=== PATIENT | female | born 1950 | race Caucasian/White ===

== ENCOUNTER → 2016-12-14 | Day surgery (SDC) | payer OTHER, BC ==
--- NOTE | 2016-12-15 10:02 | PATH ---
Surgical Pathology Report Patient Name: SUSAN LOFTON [facility]. Rec. #: [id number] /Age/Gender: 1950 (Age: 66) / F Account: [id number] Location: [facility] Taken: 12/14/2016 Received: 12/14/2016 Reported: 12/15/2016 Physicians: Nena Cobb M.D. Specimen(s) Received A: LEFT BREAST UPPER SITE 1 WITH CALCS. B: LEFT BREAST UPPER SITE 1 WITHOUT CALCS. C: LEFT BREAST UOQ SITE 2 WITH CALCS. D: LEFT BREAST UOQ SITE 2 WITHOUT CALCS E: RIGHT BREAST CORE BIOPSY UOQ WITH CALCS. F: RIGHT BREAST CORE BIOPSY UOQ WITHOUT CALCS. Clinical History Nonpalpable lesion, microcalcification, suspicious Final Diagnosis A. LEFT BREAST, SITE #1 UPPER WITH CALCIFICATION, STEREOTACTIC NEEDLE CORE BIOPSY: SCLEROSED FIBROADENOMA WITH STROMAL CALCIFICATION. B. LEFT BREAST, SITE #1 UPPER WITHOUT CALCIFICATION, STEREOTACTIC NEEDLE CORE BIOPSY: SCLEROSED FIBROADENOMA, AND FIBROCYSTIC CHANGES INCLUDING STROMAL FIBROSIS AND DUCTAL DILATATION. C. LEFT BREAST, SITE #2 UPPER OUTER QUADRANT WITH CALCIFICATION, STEREOTACTIC NEEDLE CORE BIOPSY: SCLEROSED FIBROADENOMA WITH STROMAL CALCIFICATION, AND FIBROCYSTIC CHANGES INCLUDING STROMAL FIBROSIS AND DUCTAL DILATATION. D. LEFT BREAST, SITE #2 UPPER OUTER QUADRANT WITHOUT CALCIFICATION, STEREOTACTIC NEEDLE CORE BIOPSY: FIBROCYSTIC CHANGES INCLUDING STROMAL FIBROSIS AND DUCTAL DILATATION. E. RIGHT BREAST, UPPER OUTER QUADRANT WITH CALCIFICATION, STEREOTACTIC NEEDLE CORE BIOPSY: SCLEROSED FIBROADENOMA WITH STROMAL CALCIFICATION, AND FIBROCYSTIC CHANGES INCLUDING STROMAL FIBROSIS AND DUCTAL DILATATION. F. RIGHT BREAST, UPPER OUTER QUADRANT WITHOUT CALCIFICATION, STEREOTACTIC NEEDLE CORE BIOPSY: FIBROCYSTIC CHANGES INCLUDING STROMAL FIBROSIS AND DUCTAL DILATATION. Electronically Signed Percy Ngo M.D. Gross Description A. Received in formalin, labeled "left breast with calcifications site 1," are 5 orlando-yellow, cylindrical portions of fibroadipose tissue ranging from 0.6-2.7 cm. in length and averaging 0.2 cm. in diameter. The specimen is submitted in toto in one cassette. B. Received in formalin, labeled "left breast without calcifications site 1," are 3 orlando-yellow, cylindrical portions of fibroadipose tissue ranging from 2.2-3.0 cm. in length and averaging 0.3 cm. in diameter. The specimen is submitted in toto in one cassette. C. Received in formalin, labeled "left breast with calcifications site 2," is a 2.5 x 2.2 x 0.3 cm aggregate of multiple orlando-yellow, irregular to cylindrical portions of fibroadipose tissue. The formalin is filtered and the specimen is entirely submitted in one cassette. D. Received in formalin, labeled "left breast without calcifications site 2," is a 1.8 x 1.7 x 0.3 cm aggregate of multiple orlando-yellow, irregular to cylindrical portions of fibroadipose tissue. The formalin is filtered and the specimen is entirely submitted in one cassette. E. Received in formalin, labeled "right breast with calcifications," is a 2.3 x 2.2 x 0.3 cm aggregate of multiple orlando-yellow, irregular to cylindrical portions of fibroadipose tissue. The formalin is filtered and the specimen is entirely submitted in one cassette. F. Received in formalin, labeled "right breast without calcifications," is a 2.5 x 2.4 x 0.3 cm aggregate of multiple orlando-yellow, irregular to cylindrical portions of fibroadipose tissue. The formalin is filtered and the specimen is entirely submitted in one cassette. Time to formalin fixation: 4-5 minutes Total formalin fixation time: Approximately 8 hours. 12/14/201612/14/2016
--- NOTE | 2016-12-15 12:26 | OP ---
DATE OF OPERATION: 12/14/2016 PREOPERATIVE DIAGNOSIS: Abnormal bilateral mammography. POSTOPERATIVE DIAGNOSIS: Abnormal bilateral mammography. PROCEDURE: Left breast stereotactic needle biopsy with clip x2, right breast stereotactic needle biopsy. SURGEON: Nena Cobb MD ANESTHESIA: Local. ESTIMATED BLOOD LOSS: Minimal. COMPLICATIONS: None. INDICATIONS FOR PROCEDURE: The patient presented with a screening mammogram that noted 2 areas of clustering microcalcifications in the upper and upper outer left breast as well as in the upper outer right breast. My recommendation was needle biopsy of all 3 for definitive diagnosis. The procedure was discussed with her including the need for clips. PROCEDURE IN DETAIL: The patient was brought to [facility] laid prone on the lorad table. First the left breast was approached. With the cranial approach the calcifications in the upper breast were identified. A sterile prep was obtained. A target was chosen. There was a positive stroke margin. Using Betadine 1% lidocaine and a 9-gauge Suros device was used to take several cores from this area. Cores showed calcification within them. These were handled using calcification protocol. A bar-shaped clip was deployed in the area. Hemostasis showed direct pressure. Next, the calcifications in the upper outer left breast were targeted. A sterile prep was obtained. A target was chosen. There was a positive stroke margin. Using Betadine 1% lidocaine, a new 9-gauge needle was used to take several cores from this area. Special radiographs showed cores with calcification. These were handled with usual calcification protocol. A T-shaped clip was deployed in the area. Hemostasis showed direct pressure. Both incision were closed with Steri-Strips. The patient was then repositioned. The needle was then again changed and the right breast was placed into the stereotactic table. Again, using the cranial approach, the calcification in the upper outer right breast were identified. A sterile prep was obtained. A target was chosen. There was a positive stroke margin. Using Betadine 1% lidocaine, a 9-gauge Sorus device was used to take several cores from this area. Initially the cores showed no calcification therefore I removed the needle, retargeted the area and repositioned the needle back into the breast and again took several images to ensure positioning and then severe more cores were taken from the area. This time the cores did show calcification within them. These were handled using usual calcification protocol. A bar-shaped clip was deployed in the area. Hemostasis showed direct pressure. Incision were closed with Steri- Strips. She tolerated the procedure well and [facility]. Estephanie [id number] MTDD
== END | disposition home or self-care (01) ==
LOC: FMAMMOTONE 08:12
PROVIDERS: ATTEND Surgery
PROC: 0HBV3ZX Excision of Bilateral Breast, Percutaneous Approach, Diagnostic (ICD-10-PCS; principal; 2016-12-14)
DX: D24.2 Benign neoplasm of left breast (principal); R92.8 Other abnormal and inconclusive findings on diagnostic imaging of breast; D24.1 Benign neoplasm of right breast; N60.31 Fibrosclerosis of right breast; N60.32 Fibrosclerosis of left breast; N64.89 Other specified disorders of breast
CPT/HCPCS: 19081; 19082; 19284; 88305-TC

== ENCOUNTER 2017-01-10 09:04 | Day surgery (SDC) | payer OTHER, BC ==
[2017-01-09 12:46] VITALS: BMI 42.8
[2017-01-10] MEDS ORDERED: LIDOCAINE HCL/PF 2% SDV 5ML VIAL ONE (09:45)
[2017-01-10] MEDS ORDERED: PROPOFOL 20 ML ONE ×3 (09:45)
[2017-01-10 10:30] VITALS: TEMP 97.5
[2017-01-10 11:43] VITALS: BP 120/78; PULSE 64
--- NOTE | 2017-01-11 14:22 | PATH ---
Surgical Pathology Report Patient Name: SUSAN LOFTON [facility]. Rec. #: [id number] /Age/Gender: 1950 (Age: 66) / F Account: [id number] Location: [facility] Taken: 01/10/2017 Received: 01/10/2017 Reported: 01/11/2017 Physicians: James Can D.O. Specimen(s) Received A: BX ANGULARIS/BODY B: BX PYLORUS C: BX GE JUNCTION Clinical History Nausea, abdominal pain Final Diagnosis A. STOMACH, ANGULARIS/BODY, BIOPSY: GASTRIC OXYNTIC AND FOCALLY ANTRAL MUCOSA WITH MODERATE CHRONIC GASTRITIS. IMMUNOSTAIN FOR H. PYLORI IS NEGATIVE FOR ORGANISMS. B. PYLORUS, BIOPSY: GASTRIC ANTRAL MUCOSA WITH MODERATE CHRONIC GASTRITIS WITH FOCAL INTESTINAL METAPLASIA AND MILD REACTIVE GASTROPATHY. NEGATIVE FOR DYSPLASIA. IMMUNOSTAIN FOR H. PYLORI IS NEGATIVE FOR ORGANISMS. C. GE JUNCTION, BIOPSY: FOCALLY ULCERATED SQUAMOCOLUMNAR JUNCTIONAL MUCOSA WITH ACTIVE AND CHRONIC INFLAMMATION AND MARKED REFLUX TYPE CHANGES. NO INTESTINAL METAPLASIA (JOHNSON'S ESOPHAGUS) IDENTIFIED. Comment: Special stain for fungal organisms is pending; results will be reported in an addendum. Electronically Signed Calixto King M.D. Gross Description A. Received in formalin, labeled "biopsy angularis" are 3 orlando, irregular portions of soft tissue ranging from 0.2-0.3 cm in greatest dimension. The specimens are submitted in toto in one cassette. B. Received in formalin, labeled "biopsy pylorus" are 2 orlando, irregular portions of soft tissue measuring 0.2 and 0.5 cm in greatest dimension. The specimens are submitted in toto in one cassette. C. Received in formalin, labeled "biopsy GE junction" are 3 orlando, irregular portions of soft tissue ranging from 0.2-0.4 cm in greatest dimension. The specimens are submitted in toto in one cassette. 01/10/201701/10/2017
== END 2017-01-10 11:25 | disposition home or self-care (01) ==
LOC: JASU-ENDO 09:04
PROVIDERS: ATTEND Internal Medicine Gastroenterology
PROC: 0DB68ZX Excision of Stomach, Via Natural or Artificial Opening Endoscopic, Diagnostic (ICD-10-PCS; principal; 2017-01-10 10:00)
DX: K29.50 Unspecified chronic gastritis without bleeding (principal)
CPT/HCPCS: 88305-TC; 88342-TC

== ENCOUNTER 2017-01-24 07:52 | Day surgery (SDC) | payer OTHER, BC ==
[2017-01-24 08:41] VITALS: BMI 43.0
[2017-01-24] MEDS ORDERED: LIDOCAINE HCL/PF 2% SDV 5ML VIAL ONE (08:58)
[2017-01-24] MEDS ORDERED: SUCCINYLCHOLINE CHLORIDE 200 MG/10 ML VIAL ONE (08:58)
[2017-01-24] MEDS ORDERED: PROPOFOL 20 ML ONE ×3 (08:58)
[2017-01-24 09:57] VITALS: TEMP 97.5
[2017-01-24 10:40] VITALS: BP 113/51; PULSE 73
--- NOTE | 2017-01-25 14:05 | PATH ---
Surgical Pathology Report Patient Name: SUSAN LOFTON [facility]. Rec. #: [id number] /Age/Gender: 1950 (Age: 66) / F Account: [id number] Location: [facility] Taken: 01/24/2017 Received: 01/24/2017 Reported: 01/25/2017 Physicians: James Can D.O. Specimen(s) Received A: BX CECAL POLYP B: PROXIMAL TRANSVERSE COLON POLYP C: BX SIGMOID COLON POLYP D: RECTOSIGMOID COLON POLYP COLD SNARE Clinical History Screening colonoscopy Colon polyps, diverticulosis, hemorrhoids Final Diagnosis A. COLON, CECUM, POLYP, BIOPSY: POLYPOID FRAGMENT OF COLONIC MUCOSA WITH SURFACE HYPERPLASTIC CHANGE. B. COLON, PROXIMAL TRANSVERSE, POLYP, POLYPECTOMY: FRAGMENTS OF HYPERPLASTIC-TYPE POLYP WITH FEATURES OF SESSILE SERRATED ADENOMA. C. COLON, SIGMOID, POLYP, BIOPSY: HYPERPLASTIC POLYP. D. COLON, RECTOSIGMOID, POLYP, POLYPECTOMY: TUBULAR ADENOMA. Electronically Signed Calixto King M.D. Gross Description A. Received in formalin, labeled "biopsy cecal polyp" is a orlando, irregular portion of soft tissue measuring 0.3 cm in greatest dimension. The specimen is submitted in toto in one cassette. B. Received in formalin, labeled "proximal transverse colon polyp" are 3 orlando, irregular portions of soft tissue ranging from 0.2-0.8 cm in greatest dimension. The specimens are submitted in toto in one cassette. C. Received in formalin, labeled "biopsy sigmoid colon" is a orlando, irregular portion of soft tissue measuring 0.4 cm in greatest dimension. The specimen is submitted in toto in one cassette. D. Received in formalin, labeled "rectosigmoid polyp" is a orlando, irregular portion of soft tissue measuring 0.7 cm in greatest dimension. The specimen is submitted in toto in one cassette. 01/24/201701/24/2017
== END 2017-01-24 10:49 | disposition home or self-care (01) ==
LOC: JASU-ENDO 07:52
PROVIDERS: ATTEND Internal Medicine Gastroenterology
PROC: 0DBL8ZX Excision of Transverse Colon, Via Natural or Artificial Opening Endoscopic, Diagnostic (ICD-10-PCS; 2017-01-24)
PROC: 0DBH8ZX Excision of Cecum, Via Natural or Artificial Opening Endoscopic, Diagnostic (ICD-10-PCS; 2017-01-24)
PROC: 0DBN8ZX Excision of Sigmoid Colon, Via Natural or Artificial Opening Endoscopic, Diagnostic (ICD-10-PCS; 2017-01-24)
PROC: 0DBN8ZX Excision of Sigmoid Colon, Via Natural or Artificial Opening Endoscopic, Diagnostic (ICD-10-PCS; principal; 2017-01-24 09:00)
DX: Z12.11 Encounter for screening for malignant neoplasm of colon (principal); D12.7 Benign neoplasm of rectosigmoid junction; D12.5 Benign neoplasm of sigmoid colon; D12.3 Benign neoplasm of transverse colon; D12.0 Benign neoplasm of cecum; K57.30 Diverticulosis of large intestine without perforation or abscess without bleeding; K64.8 Other hemorrhoids
CPT/HCPCS: 88305-TC

== ENCOUNTER 2017-09-28 18:11 | Inpatient (IN) | payer OTHER, BC ==
--- NOTE | 2017-09-28 18:29 | PDOC ---
History of Present Illness - General History Source: Patient Exam Limitations: No Limitations - History of Present Illness Initial Comments: 09/28/17 19:50 Patient is a 67 year old female with a significant past medical history of HTN, Anxiety, left kidney cyst, Adrenal gland nodule, who presents to the ED with complaints of bloody urine that began 3 days ago. Patient reports experiencing bloody urine suddenly monday morning while at home, which prompted her to call her urologist. She reports urologist scheduled her for CT with contrast tomorrow afternoon. Patient states she was prescribed cefuroxime antibiotics by urologist. She reports not taking blood pressure medication due to experiencing nausea when taken with her antibiotics. Patient reports urinating this morning and noticed a large clot pass. She reports calling urologist office after passing clot and states she was advised to come to the ED for further evaluation. Patient reports experiencing intense pain with urination secondary to bloody urine, stating she has begun to retain her urine due to her pain. Denies chest pain, SOB. Denies nausea, vomiting. Denies numbness, tingles. Denies constipation, diarrhea. Denies any other symptoms. Allergies: Shellfish Social history: No smoking. No alcohol. No illicit drugs. Surgical history: None PMD: Dr. Damon Urologist: Dr. Jane <Benson Lehman - Last Filed: 09/28/17 19:50> <Bryce Perez - Last Filed: 09/29/17 01:21> - General Chief Complaint: Hematuria Stated Complaint: PAIN Time Seen by Provider: 09/28/17 18:28 Past History <Benson Lehman - Last Filed: 09/28/17 19:50> - Past Medical History Anemia: No Asthma: No Cancer: No Cardiac Disorders: No CVA: No COPD: No CHF: No Dementia: No Diabetes: No GI Disorders: Yes (H/O DIVERTICULOSIS, COLON POLYP) Disorders: No HTN: Yes Hypercholesterolemia: No Liver Disease: No Seizures: No Thyroid Disease: No - Surgical History Abdominal Surgery: No Appendectomy: No Cardiac Surgery: No Cholecystectomy: No Lung Surgery: No Neurologic Surgery: No Orthopedic Surgery: Yes (LEFT TOTAL KNEE REPLACEMENT) - Immunization History Immunization Up to Date: Yes - Suicide/Smoking/Psychosocial Hx Smoking History: Never smoked Have you smoked in the past 12 months: No Information on smoking cessation initiated: No Hx Alcohol Use: No Drug/Substance Use Hx: No Substance Use Type: None Hx Substance Use Treatment: No <Bryce Perez - Last Filed: 09/29/17 01:21> - Past Medical History Allergies/Adverse Reactions: Allergies Allergy/AdvReac Type Severity Reaction Status Date / Time shellfish derived AdvReac Intermediate Hives Verified 09/28/17 18:15 Home Medications: Ambulatory Orders Metoprolol Succinate [Toprol Xl] 50 mg PO HS 01/09/17 Olmesartan Medoxomil [Benicar -] 20 mg PO DAILY 01/09/17 Alprazolam [Xanax] 0.25 mg PO Q6H PRN 01/24/17 Cefuroxime Axetil [Cefuroxime] 500 mg PO BID 09/28/17 Furosemide [Lasix] 20 mg PO DAILY 09/28/17 Review of Systems - Review of Systems Able to Perform ROS?: Yes Comments:: 09/28/17 19:50 GENERAL/CONSTITUTIONAL: No fever or chills. No weakness. HEAD, EYES, EARS, NOSE AND THROAT: No change in vision. No ear pain or discharge. No sore throat. CARDIOVASCULAR: No chest pain or shortness of breath. RESPIRATORY: No cough, wheezing, or hemoptysis. GASTROINTESTINAL: No nausea, vomiting, diarrhea or constipation. GENITOURINARY: +Dysuria, +Hematuria No frequency, MUSCULOSKELETAL: No joint or muscle swelling or pain. No neck or back pain. SKIN: No rash NEUROLOGIC: No headache, vertigo, loss of consciousness, or change in strength/ sensation. ENDOCRINE: No increased thirst. No abnormal weight change. HEMATOLOGIC/LYMPHATIC: No anemia, easy bleeding, or history of blood clots. ALLERGIC/IMMUNOLOGIC: No hives or skin allergy. All Other Systems: Reviewed and Negative <Benson Lehman - Last Filed: 09/28/17 19:50> *Physical Exam - Vital Signs Last Vital Signs Temp Pulse Resp BP Pulse Ox 98.7 F 89 17 149/90 96 09/28/17 18:16 09/28/17 18:16 09/28/17 18:16 09/28/17 18:16 09/28/17 18:16 - Physical Exam Comments: 09/28/17 19:50 GENERAL: Awake, alert, and fully oriented, in no acute distress HEAD: No signs of trauma EYES: PERRLA, EOMI, sclera anicteric, conjunctiva clear ENT: Auricles normal inspection, hearing grossly normal, nares patent, oropharynx clear without exudates. Moist mucosa NECK: Normal ROM, supple, no lymphadenopathy, JVD, or masses LUNGS: Breath sounds equal, clear to auscultation bilaterally. No wheezes, and no crackles HEART: Regular rate and rhythm, normal S1 and S2, no murmurs, rubs or gallops ABDOMEN: +Bladder distended. Soft, nontender, normoactive bowel sounds. No guarding, no rebound. No masses EXTREMITIES: Normal range of motion, no edema. No clubbing or cyanosis. No cords, erythema, or tenderness NEUROLOGICAL: Cranial nerves II through XII grossly intact. Normal speech, normal gait SKIN: Warm, Dry, normal turgor, no rashes or lesions noted. <Benson Lehman - Last Filed: 09/28/17 19:50> - Vital Signs Last Vital Signs Temp Pulse Resp BP Pulse Ox 98.7 F 89 17 149/90 96 09/28/17 18:16 09/28/17 18:16 09/28/17 18:16 09/28/17 18:16 09/28/17 18:16 <Bryce Perez - Last Filed: 09/29/17 01:21> ED Treatment Course - Medications Given in the ED: ED Medications Discontinued Medications Generic Name Dose Route Start Last Admin Trade Name Freq PRN Reason Stop Dose Admin Alprazolam 0.25 mg 09/28/17 18:57 09/28/17 19:20 Xanax - PO 09/28/17 18:58 0.25 mg ONCE ONE Administration <Benson Lehman - Last Filed: 09/28/17 19:50> - LABORATORY CBC & Chemistry Diagram: 09/28/17 19:19 09/28/17 19:19 <Bryce Perez - Last Filed: 09/29/17 01:21> *DC/Admit/Observation/Transfer - Attestations Scribe Attestion: 09/28/17 19:51 Documentation prepared by Benson Lehman, acting as medical office specialist for Bryce Perez MD/. <Benson Lehman - Last Filed: 09/28/17 19:50> - Discharge Dispostion Admit: Yes - Attestations Physician Attestion: 09/28/17 18:29 I, Dr. Bryce Perez, attest that this document has been prepared under my direction and personally reviewed by me in its entirety. I further attest, that it accurately reflects all work, treatment, procedures and medical decision -making performed by me. <Bryce Perez - Last Filed: 09/29/17 01:21> Diagnosis at time of Disposition: Renal vein thrombosis, Occult malignancy Hematuria Qualifiers: Hematuria type: gross Qualified Code(s): R31.0 - Gross hematuria UTI (urinary tract infection) Qualifiers: Urinary tract infection type: site unspecified Hematuria presence: with hematuria Qualified Code(s): N39.0 - Urinary tract infection, site not specified ; R31.9 - Hematuria, unspecified; R31.9 - Hematuria, unspecified - Discharge Dispostion Condition at time of disposition: Improved - Referrals Referrals: Geoff Damon MD [Primary Care Provider] -
[2017-09-28] MEDS ORDERED: ALPRAZolam 0.25 MG TABLET PO ONE ×2 (18:57→20:31)
[2017-09-28] MEDS ORDERED: SODIUM CHLORIDE 1,000 ML IV STA (18:57)
[2017-09-28] MEDS ORDERED: ALPRAZolam 0.25 MG TABLET ONE ×2 (19:01→20:39)
[2017-09-28 20:05] LABS: BASO % 0.6 % (0-2.0); EOS # 0.1 # (0-4.5); EOS % 1.3 % (0-4.5); LYMPH # 1.2 (8-40); MCH 31.2 pg (25.7-33.7); MCHC 33.5 g/dl (32.0-36.0); MEAN CELL VOLUME 93.1 fl (80-96); MEAN PLT VOLUME 10.9 fl (7.5-11.1); MONO # 0.5 # (3.8-10.2); NEUT % 73.1 % (42.8-82.8); PLATELET COUNT 178 K/MM3 (134-434); RDW 12.7 % (11.6-15.6); WHITE BLOOD COUNT 6.9 K/mm3 (4.0-10.0)
[2017-09-28] MEDS ORDERED: WATER FOR INJ,STERILE 30 ML ONE (20:08)
[2017-09-28 20:45] LABS: ALBUMIN 3.6 g/dl (3.4-5.0); ANION GAP 9 (8-16); BILIRUBIN,TOTAL 0.7 mg/dL (0.2-1.0); CALCIUM 8.8 mg/dL (8.5-10.1); CO2 24 mmol/L (21-32); CREATININE 1.6 mg/dL (0.55-1.02); GLUCOSE,RANDOM 111 mg/dL (74-106); SGOT/AST 20 U/L (15-37); SGPT/ALT 33 U/L (12-78); TOT PROT 6.9 g/dl (6.4-8.2)
[2017-09-28 20:46] LABS: ALK PHOS 80 U/L (45-117)
[2017-09-28 20:50] LABS: INR 1.03 (0.82-1.09); PROTHROMBIN TIME (PATIENT) 11.6 SEC (9.98-11.88)
[2017-09-28 20:52] LABS: ACTIVATED PTT 27.9 SECONDS (26.9-34.4)
[2017-09-28 23:07] LABS: PH,URINE 6.5 (5.0-8.0); URINE APPEARANCE CLEAR; URINE BILIRUBIN 1+ (NEGATIVE); URINE BLOOD 3+ (NEGATIVE); URINE COLOR DK. RED; URINE GLUCOSE (UA) TRACE (NEGATIVE); URINE KETONE TRACE (NEGATIVE)
[2017-09-28 23:15] LABS: URINE LEUK ESTERASE 1+ (NEGATIVE); URINE NITRITE POSITIVE (NEGATIVE); URINE PROTEIN 3+ (NEGATIVE)
[2017-09-28 23:25] LABS: URINE RBC >100 /hpf (0-3); URINE WBC >100 /hpf (3-5)
[2017-09-29] MEDS ORDERED: cefTRIAXone 1 GM/50 ML BAG (PRE-DOCKED) IVPB ONE (00:09)
[2017-09-29] MEDS ORDERED: CEFTRIAXONE 1 GM/50 ML BAG ONE (00:33)
--- NOTE | 2017-09-29 01:13 | HP ---
CHIEF COMPLAINT: "blood in urine, left flank pain, urinary retention" PCP: Dr. Allen Urologist: Dr. Jane HISTORY OF PRESENT ILLNESS: 67 yo F with hx of HTN, left kidney cyst and left adrenal nodule presented to the ER due to hematuria , urinary retention and left flank pain. Left flank pain (5/10) started 2 weeks ago and has radiated toward the groin, patient states that pain has improved since onset of hematuria. Patient noticed brown urine on Monday and saw her urologist Dr. Melchor where she was prescribed cefuroxime. She was scheduled for CT of pelvis tomorrow. Hematuria progresses to red and she passed clots today, her urologist recommended that she come to the ED. Yesterday she noted urinary retention for 9 hours due to severe lower abdominal/ bladder pain when she passed urine. Patient reports chills last week. Patient denies fever, headache, blurry vision, lightheadedness. Denies chest pain, SOB, palpitations. Denies N/V/D/C. She reports swelling of her feet for the past 6 months. She stopped using lasix 2 weeks ago due to nausea from antibiotics. ER course was notable for: (1) Bladder irrigation (2) CT abd/ pelvis (3) Heparin drip 1000mL/hr Recent Travel: denies PAST MEDICAL HISTORY: HTN, anxiety, left kidney cyst, left adrenal nodules, bladder infection, arthritis PAST SURGICAL HISTORY: left total knee replacement, total hysterectomy, cataract surgery, breast biopsy x3, colonoscopy, endoscopy, HIDA scan- cholelithiasis. Social History: Smoking: denies Alcohol: denies Drugs: denies Family History: mother- kidney cancer, HTN, CAD - age 80 father- aplastic anemia - 49 Allergies shellfish derived Adverse Reaction (Intermediate, Verified 09/28/17 18:15) Hives HOME MEDICATIONS: Home Medications Medication Instructions Recorded Metoprolol Succinate [Toprol Xl] 50 mg PO HS 01/09/17 Olmesartan Medoxomil [Benicar -] 20 mg PO DAILY 01/09/17 Alprazolam [Xanax] 0.25 mg PO Q6H PRN 01/24/17 Cefuroxime Axetil [Cefuroxime] 500 mg PO BID 09/28/17 Furosemide [Lasix] 20 mg PO DAILY 12/21/17 REVIEW OF SYSTEMS CONSTITUTIONAL: Absent: fever, chills, diaphoresis, generalized weakness, malaise, loss of appetite, weight change HEENT: Absent: rhinorrhea, nasal congestion, throat pain, throat swelling, difficulty swallowing, mouth swelling, ear pain, eye pain, visual changes CARDIOVASCULAR: Absent: chest pain, syncope, palpitations, irregular heart rate, lightheadedness , peripheral edema RESPIRATORY: Absent: cough, shortness of breath, dyspnea with exertion, orthopnea, wheezing, stridor, hemoptysis GASTROINTESTINAL: Absent: abdominal pain, abdominal distension, nausea, vomiting, diarrhea, constipation, melena, hematochezia GENITOURINARY: Absent: dysuria, frequency, urgency, hesitancy, hematuria, flank pain, genital pain MUSCULOSKELETAL: Absent: myalgia, arthralgia, joint swelling, back pain, neck pain SKIN: Absent: rash, itching, pallor HEMATOLOGIC/IMMUNOLOGIC: Absent: easy bleeding, easy bruising, lymphadenopathy, frequent infections ENDOCRINE: Absent: unexplained weight gain, unexplained weight loss, heat intolerance, cold intolerance NEUROLOGIC: Absent: headache, focal weakness or paresthesias, dizziness, unsteady gait, seizure, mental status changes, bladder or bowel incontinence PSYCHIATRIC: Absent: anxiety, depression, suicidal or homicidal ideation, hallucinations. PHYSICAL EXAMINATION Vital Signs - 24 hr 09/28/17 18:16 Temperature 98.7 F Pulse Rate 89 Respiratory 17 Rate Blood Pressure 149/90 O2 Sat by Pulse 96 Oximetry (%) GENERAL: Awake, alert, and fully oriented, in no acute distress. HEAD: Normal with no signs of trauma. EYES: Pupils equal, round and reactive to light, extraocular movements intact, sclera anicteric, conjunctiva clear. No lid lag. EARS, NOSE, THROAT: Ears normal, nares patent, oropharynx clear without exudates. Moist mucous membranes. NECK: Normal range of motion, supple without lymphadenopathy, JVD, or masses. LUNGS: Breath sounds equal, clear to auscultation bilaterally. No wheezes, and no crackles. No accessory muscle use. HEART: Regular rate and rhythm, normal S1 and S2 without murmur, rub or gallop. ABDOMEN: Soft, nontender, not distended, normoactive bowel sounds, no guarding, no rebound, no masses. No hepatomegaly or splenomegaly. MUSCULOSKELETAL: Normal range of motion at all joints. No bony deformities or tenderness. No CVA tenderness. UPPER EXTREMITIES: 2+ pulses, warm, well-perfused. No cyanosis. No clubbing. No peripheral edema. LOWER EXTREMITIES: 2+ pulses, warm, well-perfused. No calf tenderness. No peripheral edema. NEUROLOGICAL: Cranial nerves II-XII intact. Normal speech. Normal gait. PSYCHIATRIC: Cooperative. Good eye contact. Appropriate mood and affect. SKIN: Warm, dry, normal turgor, no rashes or lesions noted, normal capillary refill. Laboratory Results - last 24 hr 09/28/17 09/28/17 09/28/17 19:19 19:19 19:19 WBC 6.9 D RBC 3.67 Hgb 11.5 Hct 34.2 MCV 93.1 MCH 31.2 MCHC 33.5 RDW 12.7 Plt Count 178 MPV 10.9 Absolute Neuts (auto) 5.0 L Absolute Lymphs (auto) 1.2 L Absolute Monos (auto) 0.5 L Absolute Eos (auto) 0.1 Absolute Basos (auto) 0.0 L Neutrophils % 73.1 D Lymphocytes % 17.6 D Monocytes % 7.4 Eosinophils % 1.3 Basophils % 0.6 PT with INR 11.60 INR 1.03 PTT (Actin FS) 27.9 Sodium 139 Potassium 4.1 Chloride 106 Carbon Dioxide 24 Anion Gap 9 BUN 29 H Creatinine 1.6 H Creat Clearance w eGFR 31.96 Random Glucose 111 H Calcium 8.8 Total Bilirubin 0.7 D AST 20 ALT 33 Alkaline Phosphatase 80 Total Protein 6.9 Albumin 3.6 Urine Color Urine Appearance Urine pH Ur Specific [place] Urine Protein Urine Glucose (UA) Urine Ketones Urine Blood Urine Nitrite Urine Bilirubin Urine Urobilinogen Urine WBC (Auto) Urine RBC (Auto) Ur Epithelial Cells Blood Type Antibody Screen 09/28/17 09/28/17 19:19 20:48 WBC RBC Hgb Hct MCV MCH MCHC RDW Plt Count MPV Absolute Neuts (auto) Absolute Lymphs (auto) Absolute Monos (auto) Absolute Eos (auto) Absolute Basos (auto) Neutrophils % Lymphocytes % Monocytes % Eosinophils % Basophils % PT with INR INR PTT (Actin FS) Sodium Potassium Chloride Carbon Dioxide Anion Gap BUN Creatinine Creat Clearance w eGFR Random Glucose Calcium Total Bilirubin AST ALT Alkaline Phosphatase Total Protein Albumin Urine Color Dk. red Urine Appearance Clear Urine pH 6.5 D Ur Specific [place] 1.020 Urine Protein 3+ H Urine Glucose (UA) Trace H Urine Ketones Trace H Urine Blood 3+ H Urine Nitrite Positive Urine Bilirubin 1+ H Urine Urobilinogen 1.0 Urine WBC (Auto) >100 Urine RBC (Auto) >100 Ur Epithelial Cells Mod Blood Type A NEGATIVE Antibody Screen Negative CBC, BMP 09/28/17 19:19 09/28/17 19:19 CT abd/pelvis 09/28/17 IMPRESSION: 1. Left renal vein thrombosis as described above, may be secondary to bland or tumor thrombus. Please correlate clinically and confirm with renal vein duplex. Secondary marked enlargement of the left kidney with heterogeneous hyperattenuation of the parenchyma, suggesting left renal hemorrhage. Underlying renal neoplasm cannot be excluded. Evaluation with multiphase contrast- enhanced MRI or CT of the kidneys is recommended. 2. No hydroureteronephrosis. There is no renal, ureteral or urinary bladder calculi Large left renal cyst. 3. Approximately 3.4 x 2.6 cm heterogeneous left adrenal mass, similar in size to 06/28/2013 CT. This mass is indeterminate. Malignancy cannot be entirely excluded with imaging in adrenal masses > 3 cm. Nonemergent surgical evaluation recommended. 4. A 1.9 x 1.5 cm right adrenal gland adenoma. 5. Hepatic steatosis and borderline hepatomegaly. 6. A 1.2 x 0.9 cm peripherally calcified splenic artery aneurysm, unchanged in size from 06/2013. 7. Small pericardial effusion. ASSESSMENT/PLAN: 67 yo F with hx of HTN, left kidney cyst and left adrenal nodule presented to the ER due to 3 days hx of hematuria , urinary retention and left flank pain. Was admitted for further evaluation. #hematuria likely secondary to renal thrombosis vs malignancy * bladder irrigation in the ED * heparin drip * admit to med surge * Urology consult Dr. Jane * consider U/S and MRI of kidneys - patient unable to tolerate contrast * repeat CBC, BMP, urine culture * mancilla cathether #UTI 2/2 retention * ceftriaxone 1g IVPB * # R[place] on CKD stage 3b * GFR 33 * BUN/Cr 29/1.6 , base line cr 1.5 * Nephrology consult * Avoid nephrotoxigenic * # HTN (stable) * continue home medication Metoprolol Succinate [Toprol Xl] 50 mg PO HS * Olmesartan Medoxomil [Benicar -] 20 mg PO DAILY #morbid obesity (BMI 35) * consulted about losing weight and modified diet # FEN * F:on no fluids * E: monitor * N: low sodium diet #proph * DVT: SCDs B/L LE. Heparin drip 1000ml/hr * GI: not needed dispo: admit to med-surg - Visit type - Emergency Visit Emergency Visit: Yes ED Registration Date: 09/29/17 Care time: The patient presented to the Emergency Department on the above date and was hospitalized for further evaluation of their emergent condition. - New Patient This patient is new to me today: No - Critical Care Critical Care patient: No
[2017-09-29] MEDS ORDERED: HEPARIN INFUSION - 25,000 UNITS/500 ML INFUS.BAG IVPB ONE (01:50)
[2017-09-29] MEDS: HEPARIN - 25,000 UNIT in SODIUM CHLORIDE 495 ML IV SCH (02:00)
[2017-09-29] MEDS ORDERED: morphine SULFATE 4 MG/ML VIAL IVPUSH PRN (02:24)
[2017-09-29 03:14] VITALS: BMI 42.5
--- NOTE | 2017-09-29 05:30 | PN ---
Teaching Attending Note Name of Resident: Miguel Giles ATTENDING PHYSICIAN STATEMENT I saw and evaluated the patient. I reviewed the resident's note and discussed the case with the resident. I agree with the resident's findings and plan as documented. SUBJECTIVE: 67 y/o F with left flank pain and tenderness with hematuria for 3 days ago. Patient follows with Dr Mcghee and was ssen with plans OBJECTIVE: Gen: A&Ox3, afebrile HEENT: PEERLA, EOMI, MMM CVS: RRR, S1, S2 LUNGS: CTA ABD: Soft, left flank tenderness, BS+ Ext: no edema, nl ROM : CBI with red urine CBCD WBC 6.9 K/mm3 (4.0-10.0) D 09/28/17 19:19 RBC 3.67 M/mm3 (3.60-5.2) 09/28/17 19:19 Hgb 11.5 GM/dL (10.7-15.3) 09/28/17 19:19 Hct 34.2 % (32.4-45.2) 09/28/17 19:19 MCV 93.1 fl (80-96) 09/28/17 19:19 MCHC 33.5 g/dl (32.0-36.0) 09/28/17 19:19 RDW 12.7 % (11.6-15.6) 09/28/17 19:19 Plt Count 178 K/MM3 (134-434) 09/28/17 19:19 MPV 10.9 fl (7.5-11.1) 09/28/17 19:19 CMP Sodium 139 mmol/L (136-145) 09/28/17 19:19 Potassium 4.1 mmol/L (3.5-5.1) 09/28/17 19:19 Chloride 106 mmol/L (98-107) 09/28/17 19:19 Carbon Dioxide 24 mmol/L (21-32) 09/28/17 19:19 Anion Gap 9 (8-16) 09/28/17 19:19 BUN 29 mg/dL (7-18) H 09/28/17 19:19 Creatinine 1.6 mg/dL (0.55-1.02) H 09/28/17 19:19 Creat Clearance w eGFR 31.96 (>60) 09/28/17 19:19 Random Glucose 111 mg/dL (74-106) H 09/28/17 19:19 Calcium 8.8 mg/dL (8.5-10.1) 09/28/17 19:19 Total Bilirubin 0.7 mg/dL (0.2-1.0) D 09/28/17 19:19 AST 20 U/L (15-37) 09/28/17 19:19 ALT 33 U/L (12-78) 09/28/17 19:19 Alkaline Phosphatase 80 U/L (45-117) 09/28/17 19:19 Total Protein 6.9 g/dl (6.4-8.2) 09/28/17 19:19 Albumin 3.6 g/dl (3.4-5.0) 09/28/17 19:19 ASSESSMENT AND PLAN: Left Renal vein thrombosis with hematuria- anticoagulation heparin drip CBI Continue Ceftriaxone Urology and nephrology consult Monitor CBC and BMP CKD stage 3- avoid nephrotoxic drugs HTn- continue home medication. Asymptomatic Pericarditis-no intervention at this time Consider ECHO.
[2017-09-29] MEDS ORDERED: HEPARIN NA (PORCINE) 5,000 UNITS/ML 1ML VIAL SQ SCH (06:00)
--- NOTE | 2017-09-29 08:05 | MSN ---
Progress Note (short form) - Note Progress Note: SUBJECTIVE CC: blood in urine, L flank pain, urinary retention, outpatient UTI HPI: 67 y/o obese F with PMHx HTN, L kidney cyst, L adrenal mass (seen on [address]) with family hx of kidney ca and aplastic anemia. She presented with L flank pain of 2 weeks duration and states she noted brown urine on Tuesday 09/25 and was treated by Dr. Melchor for UTI with cefuroxime PO and took four oral doses (four day course) prior to admission to [facility]. She began passing clots in her urine, and hematuria changed from brown to bright red yesterday; Dr. Melchor told her to go to the hospital. Patient seen and examined today. Nurse reported having to change Edwards bag since patient is still passing clots this AM and urine was dilute bright red blood. Patient reports her L flank pain and nausea is improved from admission, and unchanged edema in b/l LE. Denies recent weight loss, appetite changes, chills, palpitations, vomiting, sweating. She states she has no cardiac conditions, never been seen by vascular, and denies being dx w/ CKD. She states she feels pressure from the Edwards but no pain. Pt states she has not taken Lasix for 2 weeks since she was on abx for UTI and "had to keep going to the bathroom; didn't want it to interfere with other meds". She reports having had a contrast CT of abd/pelvis done in 2014 and underwent thorough GI workup by Dr. Whiting for nausea "since October". OBJECTIVE Last Vital Signs Temp Pulse Resp BP Pulse Ox 97.7 F 73 20 123/51 96 09/29/17 09:34 09/29/17 09:34 09/29/17 09:34 09/29/17 09:34 09/29/17 09:00 General: Patient lying comfortably in bed, pleasant demeanor, smiling, in no acute distress. Eyes: PERRLA. Heart: Regular rate, regular rhythm. S1/S2. 3/6 systolic ejection murmur noted at R 2nd ICS. No other murmurs, gallops or rubs appreciated. Lungs: CTA b/l. No wheezing, no rhonchi. Abdomen: Normoactive bowel sounds x 4 quadrants. Nontender to light/deep palpation in RLQ, RUQ, epigastrium. Tender to light palpation in LUQ, LLQ. Tympanic to percussion x 4 quadrants. Mild CVA tenderness on L side. Extremities: 2+ pitting edema in b/l LE, worse on dorsum of b/l feet. Slight erythema noted on b/l LE near mid-calf; chronic. CBC, BMP 09/29/17 09:25 09/29/17 05:05 Abnormal Lab Results 09/28/17 09/28/17 09/28/17 19:19 19:19 20:48 RBC Hgb Hct Absolute Neuts (auto) 5.0 L Absolute Lymphs (auto) 1.2 L Absolute Monos (auto) 0.5 L Absolute Basos (auto) 0.0 L Chloride BUN 29 H Creatinine 1.6 H Random Glucose 111 H Total Protein Albumin Urine Protein 3+ H Urine Glucose (UA) Trace H Urine Ketones Trace H Urine Blood 3+ H Urine Bilirubin 1+ H Ur Leukocyte Esterase 3+ H 09/29/17 09/29/17 05:05 09:25 RBC 3.42 L Hgb 10.5 L Hct 32.2 L Absolute Neuts (auto) 2.7 L Absolute Lymphs (auto) 1.4 L Absolute Monos (auto) 0.5 L Absolute Basos (auto) Chloride 110 H BUN 22 H D Creatinine 1.3 H Random Glucose Total Protein 5.8 L Albumin 3.0 L Urine Protein Urine Glucose (UA) Urine Ketones Urine Blood Urine Bilirubin Ur Leukocyte Esterase Urine Test Results Urine Color Dk. red 09/28/17 20:48 Urine Appearance Clear 09/28/17 20:48 Urine pH 6.5 (5.0-8.0) D 09/28/17 20:48 Ur Specific [place] 1.020 (1.001-1.035) 09/28/17 20:48 Urine Protein 3+ (NEGATIVE) H 09/28/17 20:48 Urine Glucose (UA) Trace (NEGATIVE) H 09/28/17 20:48 Urine Ketones Trace (NEGATIVE) H 09/28/17 20:48 Urine Blood 3+ (NEGATIVE) H 09/28/17 20:48 Urine Nitrite Positive (NEGATIVE) 09/28/17 20:48 Urine Bilirubin 1+ (NEGATIVE) H 09/28/17 20:48 Ur Leukocyte Esterase 3+ (NEGATIVE) H 09/28/17 20:48 Ur Epithelial Cells Mod /HPF (FEW) 09/28/17 20:48 CT abdomen/pelvis: IMPRESSION: 1. Left renal vein thrombosis as described above , may be secondary to bland or tumor thrombus. Please correlate clinically and confirm with renal vein duplex. Secondary marked enlargement of the left kidney with heterogeneous hyperattenuation of the parenchyma, suggesting left renal hemorrhage. Underlying renal neoplasm cannot be excluded. Evaluation with multiphase contrast- enhanced MRI or CT of the kidneys is recommended. 2. No hydroureteronephrosis. There is no renal, ureteral or urinary bladder calculi Large left renal cyst. 3. Approximately 3.4 x 2.6 cm heterogeneous left adrenal mass, similar in size to 06/28/2013 CT. This mass is indeterminate. Malignancy cannot be entirely excluded with imaging in adrenal masses > 3 cm. Nonemergent surgical evaluation recommended. 4. A 1.9 x 1.5 cm right adrenal gland adenoma. 5. Hepatic steatosis and borderline hepatomegaly. 6. A 1.2 x 0.9 cm peripherally calcified splenic artery aneurysm, unchanged in size from 06/2013. 7. Small pericardial effusion. Intake & Output 09/26/17 09/27/17 09/28/17 09/29/17 23:59 23:59 23:59 23:59 Intake Total 08389 Output Total 2609 96930 Balance -2600 -4292 Weight 200 lb 240 lb Active Medications Generic Name Dose Route Start Last Admin Trade Name Freq PRN Reason Stop Dose Admin Heparin Sodium (Porcine) 25, 500 mls @ 20 mls/hr 09/29/17 01:30 09/29/17 02: 00 000 unit/ Sodium Chloride IV 1,000 unit/hr TITR ELADIO 20 mls/hr Protocol Administration 1,000 UNIT/HR CEFTRIAXONE 1 G/50 ML PREMIX 50 mls @ 100 mls/hr 09/30/17 10:00 Ceftriaxone 1 Gm-D5w Bag IVPB DAILY ELADIO Morphine Sulfate 1 mg 09/29/17 02:24 Morphine Sulfate IVPUSH Q8H PRN PAIN Home Medications Medication Instructions Recorded Metoprolol Succinate [Toprol Xl] 50 mg PO HS 01/09/17 Olmesartan Medoxomil [Benicar -] 20 mg PO DAILY 01/09/17 Alprazolam [Xanax] 0.25 mg PO Q6H PRN 01/24/17 Cefuroxime Axetil [Cefuroxime] 500 mg PO BID 09/28/17 Furosemide [Lasix] 20 mg PO DAILY 09/28/17 ASSESSMENT 67 y/o F with PMHx HTN, L kidney cyst, L adrenal mass (seen on 06/28/2013 CT) with family hx of kidney ca and aplastic anemia. Found to have L renal vein thrombosis with secondary marked enlargement of L kidney with L adrenal mass ( unchanged from 2012) and R adrenal gland adenoma. PLAN 1. Hematuria - likely 2/2 L renal hemorrhage secondary to L renal v. thrombosis; could be multifactorial with underlying renal malignancy given family hx of kidney ca and nausea since October 2016. - On Heparin gtt; urology consult Dr. Jane on board - Dr. Mendez consulted Dr. Cheng to address L renal v. thrombosis - Stool occult blood; CBC with diff ordered q8h - pt will require CAT scan of abd with contrast after urology/vasc consult - UA 3+ protein likely 2/2 glomerular damage from marked enlargement of L kidney secondary to L renal v. thrombosis 2. HTN - hold home meds; continue to monitor HTN since stable at this time - pt at risk of hypotension 2/2 renal hemorrhage 3. elevated BUN/elevated Cr - Pt baseline BUN from 3878-8459 ~30; baseline Cr 0.8 - 1.1 - currently CKD G3ba1; consulted Dr. Campa for nephro 4. FEN - Fluids: none at this time - Electrolytes: wnl - Nutrition: low sodium diet 5. PPX - DVT - Hep gtt - GI: not needed 6. Dispo - admit Med Surg BRUCE Cota-3 -
[2017-09-29 08:30] LABS: ALK PHOS 71 U/L (45-117); ANION GAP 8 (8-16); BILIRUBIN,TOTAL 0.7 mg/dL (0.2-1.0); CALCIUM 8.7 mg/dL (8.5-10.1); CO2 25 mmol/L (21-32); CREATININE 1.3 mg/dL (0.55-1.02); GLUCOSE,RANDOM 87 mg/dL (74-106); SGOT/AST 22 U/L (15-37); SGPT/ALT 29 U/L (12-78); TOT PROT 5.8 g/dl (6.4-8.2)
[2017-09-29 09:32] LABS: BASO # 0.1 # (0.1-1); BASO % 1.1 % (0-2.0); EOS # 0.2 # (0-4.5); LYMPH # 1.4 (8-40); MCH 30.6 pg (25.7-33.7); MCHC 32.4 g/dl (32.0-36.0); MEAN CELL VOLUME 94.2 fl (80-96); MEAN PLT VOLUME 10.7 fl (7.5-11.1); MONO # 0.5 # (3.8-10.2); NEUT # 2.7 # (42.8-82.8); NEUT % 55.9 % (42.8-82.8); PLATELET COUNT 157 K/MM3 (134-434); RDW 12.9 % (11.6-15.6); WHITE BLOOD COUNT 4.8 K/mm3 (4.0-10.0)
[2017-09-29 11:39] LABS: URINE LEUK ESTERASE 3+ (NEGATIVE)
--- NOTE | 2017-09-29 13:46 | EKG ---
Test Reason : Blood Pressure : / mmHG Vent. Rate : 070 BPM Atrial Rate : 070 BPM P-R Int : 190 ms QRS Dur : 098 ms QT Int : 384 ms P-R-T Axes : 052 -07 004 degrees QTc Int : 414 ms NORMAL SINUS RHYTHM MINIMAL VOLTAGE CRITERIA FOR LVH, MAY BE NORMAL VARIANT CANNOT RULE OUT ANTERIOR INFARCT , AGE UNDETERMINED NONSPECIFIC T WAVE ABNORMALITY ABNORMAL ECG Confirmed by LIZZIE BERNARDO MD ([id number]) on 09/29/2017 1:46:12 PM Referred By: Confirmed By:LIZZIE BERNARDO MD
[2017-09-29] MEDS: SODIUM CHLORIDE 1,000 ML IV SCH (14:27)
--- NOTE | 2017-09-29 14:39 | CONSULT ---
Consultation: REQUESTING PROVIDER: CONSULT REQUEST: We have been asked to medically evaluate this patient for ( specify). HISTORY OF PRESENT ILLNESS: This is a 67 yo F with PMH of of L renal cyst, L adrenal nodule, frequent UTIs and HTN, who presented to ED per Urologist request due to hematuria with clots, urinary retention and L flank pain. Flank pain (5/10) started 2 weeks ago and hematuria started Mon. She states that hematuria has improved the pain. On mon she sand saw Dr. Melchor and was prescribed cefuroxime. In ED she was found to have ROOSEVELT, hematuria, proteinuria, as well as L renal vein occlusion and hemorrhage on CT. Since admission her flank pain and retention resolved. Edwards was inserted and she was started on IV abx and hep gtt. Patient has been following with Dr Melchor regularly. Her prior renal w/u involved a CT in 2012 that showed a L renal cyst 5.5x3.5 and a L adrenal nodule 2.5 cm. She states she had an MRI in 2014 that was not consistent with malignancy, she never had a biopsy. He mother of renal CA at 78 yo. Patient denies fever, headache, blurry vision, lightheadedness, cp, SOB, palpitations, V/D/C. She reports b/l ankle edema x 6 months due to decreased mobility in setting of worsening R knee pain/plan for knee replacement. She stopped using lasix 2 weeks ago due to nausea thgat she attributes to abx REVIEW OF SYSTEMS: CONSTITUTIONAL: Absent: fever, chills, loss of appetite, weight change HEENT: Absent: rhinorrhea, nasal congestion, throat pain, throat swelling, difficulty swallowing CARDIOVASCULAR: Absent: chest pain, syncope, palpitations, irregular heart rate, lightheadedness , peripheral edema RESPIRATORY: Absent: cough, shortness of breath, dyspnea with exertion, orthopnea, hemoptysis GASTROINTESTINAL: Absent: abdominal pain, abdominal distension, nausea, vomiting, diarrhea, constipation, melena, hematochezia GENITOURINARY: Absent: dysuria, frequency, urgency MUSCULOSKELETAL: Absent: myalgia, arthralgia SKIN: Absent: rash, itching, pallor HEMATOLOGIC/IMMUNOLOGIC: Absent: easy bleeding, easy bruising ENDOCRINE: Absent: unexplained weight gain, unexplained weight loss, heat intolerance, cold intolerance NEUROLOGIC: Absent: headache, focal weakness or paresthesias PSYCHIATRIC: Absent: anxiety, depression PHYSICAL EXAMINATION Vital Signs - 24 hr 09/28/17 09/29/17 09/29/17 18:16 02:10 03:00 Temperature 98.7 F 98.0 F 98.1 F Pulse Rate 89 77 Pulse Rate [ 74 Apical] Respiratory 17 18 20 Rate Blood Pressure 149/90 158/77 Blood Pressure 138/64 [Right Arm] O2 Sat by Pulse 96 96 Oximetry (%) 09/29/17 09/29/17 09/29/17 03:18 06:00 09:00 Temperature 98.1 F Pulse Rate 77 Pulse Rate [ Apical] Respiratory 20 20 Rate Blood Pressure 158/87 Blood Pressure [Right Arm] O2 Sat by Pulse 96 96 Oximetry (%) 09/29/17 09:34 Temperature 97.7 F Pulse Rate 73 Pulse Rate [ Apical] Respiratory 20 Rate Blood Pressure 123/51 Blood Pressure [Right Arm] O2 Sat by Pulse Oximetry (%) GENERAL: Awake, alert, and fully oriented, in no acute distress. HEAD: Normal with no signs of trauma. EYES: Pupils equal, round and reactive to light, extraocular movements intact, sclera anicteric, conjunctiva clear. EARS, NOSE, THROAT: Moist mucous membranes. NECK: supple without JVD LUNGS: Breath sounds equal, clear to auscultation bilaterally. HEART: Regular rate and rhythm, normal S1 and S2 ABDOMEN: Soft, nontender, not distended, normoactive bowel sounds, no guarding, no rebound, no masses. No hepatomegaly or splenomegaly. MUSCULOSKELETAL: No CVA tenderness. UPPER EXTREMITIES: 2+ pulses, warm, well-perfused. No peripheral edema. LOWER EXTREMITIES: 1+ pulses, warm, well-perfused. No calf tenderness. No peripheral edema. NEUROLOGICAL: Cranial nerves II-XII grossly intact. Normal speech. Normal gait. PSYCHIATRIC: Cooperative. Good eye contact. Appropriate mood and affect. SKIN: Warm, dry Laboratory Results - last 24 hr 09/28/17 09/28/17 09/28/17 19:19 19:19 19:19 WBC 6.9 D RBC 3.67 Hgb 11.5 Hct 34.2 MCV 93.1 MCH 31.2 MCHC 33.5 RDW 12.7 Plt Count 178 MPV 10.9 Absolute Neuts (auto) 5.0 L Absolute Lymphs (auto) 1.2 L Absolute Monos (auto) 0.5 L Absolute Eos (auto) 0.1 Absolute Basos (auto) 0.0 L Neutrophils % 73.1 D Lymphocytes % 17.6 D Monocytes % 7.4 Eosinophils % 1.3 Basophils % 0.6 PT with INR 11.60 INR 1.03 PTT (Actin FS) 27.9 Sodium 139 Potassium 4.1 Chloride 106 Carbon Dioxide 24 Anion Gap 9 BUN 29 H Creatinine 1.6 H Creat Clearance w eGFR 31.96 Random Glucose 111 H Calcium 8.8 Total Bilirubin 0.7 D AST 20 ALT 33 Alkaline Phosphatase 80 Total Protein 6.9 Albumin 3.6 Urine Color Urine Appearance Urine pH Ur Specific [place] Urine Protein Urine Glucose (UA) Urine Ketones Urine Blood Urine Nitrite Urine Bilirubin Urine Urobilinogen Ur Leukocyte Esterase Urine WBC (Auto) Urine RBC (Auto) Ur Epithelial Cells Blood Type Antibody Screen 09/28/17 09/28/17 09/29/17 19:19 20:48 05:05 WBC RBC Hgb Hct MCV MCH MCHC RDW Plt Count MPV Absolute Neuts (auto) Absolute Lymphs (auto) Absolute Monos (auto) Absolute Eos (auto) Absolute Basos (auto) Neutrophils % Lymphocytes % Monocytes % Eosinophils % Basophils % PT with INR INR PTT (Actin FS) Sodium 143 Potassium 4.1 Chloride 110 H Carbon Dioxide 25 Anion Gap 8 BUN 22 H D Creatinine 1.3 H Creat Clearance w eGFR 40.61 Random Glucose 87 D Calcium 8.7 Total Bilirubin 0.7 AST 22 ALT 29 Alkaline Phosphatase 71 Total Protein 5.8 L Albumin 3.0 L Urine Color Dk. red Urine Appearance Clear Urine pH 6.5 D Ur Specific [place] 1.020 Urine Protein 3+ H Urine Glucose (UA) Trace H Urine Ketones Trace H Urine Blood 3+ H Urine Nitrite Positive Urine Bilirubin 1+ H Urine Urobilinogen 1.0 Ur Leukocyte Esterase 3+ H Urine WBC (Auto) >100 Urine RBC (Auto) >100 Ur Epithelial Cells Mod Blood Type A NEGATIVE Antibody Screen Negative 09/29/17 09/29/17 06:30 09:25 WBC 4.8 D RBC 3.42 L Hgb 10.5 L Hct 32.2 L MCV 94.2 MCH 30.6 MCHC 32.4 RDW 12.9 Plt Count 157 MPV 10.7 Absolute Neuts (auto) 2.7 L Absolute Lymphs (auto) 1.4 L Absolute Monos (auto) 0.5 L Absolute Eos (auto) 0.2 Absolute Basos (auto) 0.1 Neutrophils % 55.9 D Lymphocytes % 29.5 D Monocytes % 9.5 Eosinophils % 4.0 D Basophils % 1.1 PT with INR INR PTT (Actin FS) Sodium Potassium Chloride Carbon Dioxide Anion Gap BUN Creatinine Creat Clearance w eGFR Random Glucose Calcium Total Bilirubin AST ALT Alkaline Phosphatase Total Protein Albumin Urine Color Urine Appearance Urine pH Ur Specific [place] Urine Protein Urine Glucose (UA) Urine Ketones Urine Blood Urine Nitrite Urine Bilirubin Urine Urobilinogen Ur Leukocyte Esterase Urine WBC (Auto) Urine RBC (Auto) Ur Epithelial Cells Blood Type A NEGATIVE Antibody Screen Negative Active Medications Generic Name Dose Route Start Last Admin Trade Name Freq PRN Reason Stop Dose Admin Heparin Sodium (Porcine) 25, 500 mls @ 20 mls/hr 09/29/17 01:30 09/29/17 02: 00 000 unit/ Sodium Chloride IV 1,000 unit/hr TITR ELADIO 20 mls/hr Protocol Administration 1,000 UNIT/HR CEFTRIAXONE 1 G/50 ML PREMIX 50 mls @ 100 mls/hr 09/30/17 10:00 Ceftriaxone 1 Gm-D5w Bag IVPB DAILY ELADIO Sodium Chloride 1,000 mls @ 75 mls/hr 09/29/17 11:45 09/29/17 14:27 Normal Saline - IV 75 mls/hr ASDIR ELADIO Administration Morphine Sulfate 1 mg 09/29/17 02:24 Morphine Sulfate IVPUSH Q8H PRN PAIN ASSESSMENT/PLAN: This is a 67 yo F with PMH of of L renal cyst, L adrenal nodule, frequent UTIs and HTN, who presented to ED per Urologist request due to hematuria with clots, urinary retention and L flank pain. 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 adrenal nodule stable at 2.5 cm. -recommend abd/palvis MRI to assess for possible underlying mass, possible malignancy -thrombophelia w/u -recommend hem/onc consult -urlogy on case -ua 3+ protein and blood, >100 wbc, rbc, 3+ leuk est -urine studies when hematuria improves -continue hep gtt -continue abx for possible uti, f/u urine cultures ROOSEVELT -bun/creat 22/.3 improving; baseline creat 1 -prerenal/parenchymal -continue IVF hydration NS @ 75 and hep gtt B/L LE edema -unlikley related to nephrotic protein loss, likely due to stasis HTN -resume metoprolol, hold lasix and arb Dispo: We will continue to follow the patient. Thank you for this consultative opportunity. Problem List - Problems (1) Hemorrhage of cyst of [place] kidney Code(s): N28.89 - OTHER SPECIFIED DISORDERS OF KIDNEY AND URETER; N28.1 - CYST OF KIDNEY, ACQUIRED (2) HTN (hypertension) Code(s): I10 - ESSENTIAL (PRIMARY) HYPERTENSION (3) Proteinuria Code(s): R80.9 - PROTEINURIA, UNSPECIFIED (4) ROOSEVELT (acute kidney injury) Code(s): N17.9 - ACUTE KIDNEY FAILURE, UNSPECIFIED (5) Hematuria Code(s): R31.9 - HEMATURIA, UNSPECIFIED Qualifiers: Hematuria type: gross Qualified Code(s): R31.0 - Gross hematuria (6) Renal vein thrombosis Code(s): I82.3 - EMBOLISM AND THROMBOSIS OF RENAL VEIN (7) UTI (urinary tract infection) Code(s): N39.0 - URINARY TRACT INFECTION, SITE NOT SPECIFIED Qualifiers: Urinary tract infection type: site unspecified Hematuria presence: with hematuria Qualified Code(s): N39.0 - Urinary tract infection, site not specified; R31.9 - Hematuria, unspecified; R31.9 - Hematuria, unspecified Visit type - Emergency Visit Emergency Visit: Yes ED Registration Date: 09/29/17 Care time: The patient presented to the Emergency Department on the above date and was hospitalized for further evaluation of their emergent condition. - New Patient This patient is new to me today: Yes Date on this admission: 09/29/17 - Critical Care Critical Care patient: No
--- NOTE | 2017-09-29 15:53 | PN ---
Physical Exam: SUBJECTIVE: Patient seen and examined. Pt reports abdominal and flank pain are improved. No fever, chills. No overnight events. OBJECTIVE: Vital Signs Period Temp Pulse Resp BP Sys/Reina Pulse Ox Last 24 Hr 97.7 F-98.7 F 72-89 17-20 123-158/51-90 96-96 GENERAL: The patient is awake, alert, and fully oriented, in no acute distress. LUNGS: Breath sounds equal, clear to auscultation bilaterally, no wheezes, no crackles, no accessory muscle use. HEART: 2/6 systolic murmur heard best at the Left upper sternal border. Regular rate and rhythm. ABDOMEN: mild suprapubic tenderness. Soft, nondistended, normoactive bowel sounds, no guarding. EXTREMITIES: 2+ pulses, warm, well-perfused, 2+ pitting lisa edema. : Urine in [place] is clearing up, though pink still. Bladder irrigation ongoing. Left flank pain resolved. PSYCH: Normal mood, normal affect. SKIN: Warm, dry, normal turgor, no rashes or lesions noted Laboratory Results - last 24 hr 09/28/17 09/28/17 09/28/17 19:19 19:19 19:19 WBC 6.9 D RBC 3.67 Hgb 11.5 Hct 34.2 MCV 93.1 MCH 31.2 MCHC 33.5 RDW 12.7 Plt Count 178 MPV 10.9 Absolute Neuts (auto) 5.0 L Absolute Lymphs (auto) 1.2 L Absolute Monos (auto) 0.5 L Absolute Eos (auto) 0.1 Absolute Basos (auto) 0.0 L Neutrophils % 73.1 D Lymphocytes % 17.6 D Monocytes % 7.4 Eosinophils % 1.3 Basophils % 0.6 PT with INR 11.60 INR 1.03 PTT (Actin FS) 27.9 Sodium 139 Potassium 4.1 Chloride 106 Carbon Dioxide 24 Anion Gap 9 BUN 29 H Creatinine 1.6 H Creat Clearance w eGFR 31.96 Random Glucose 111 H Calcium 8.8 Total Bilirubin 0.7 D AST 20 ALT 33 Alkaline Phosphatase 80 Total Protein 6.9 Albumin 3.6 Urine Color Urine Appearance Urine pH Ur Specific [place] Urine Protein Urine Glucose (UA) Urine Ketones Urine Blood Urine Nitrite Urine Bilirubin Urine Urobilinogen Ur Leukocyte Esterase Urine WBC (Auto) Urine RBC (Auto) Ur Epithelial Cells Blood Type Antibody Screen 09/28/17 09/28/17 09/29/17 19:19 20:48 05:05 WBC RBC Hgb Hct MCV MCH MCHC RDW Plt Count MPV Absolute Neuts (auto) Absolute Lymphs (auto) Absolute Monos (auto) Absolute Eos (auto) Absolute Basos (auto) Neutrophils % Lymphocytes % Monocytes % Eosinophils % Basophils % PT with INR INR PTT (Actin FS) Sodium 143 Potassium 4.1 Chloride 110 H Carbon Dioxide 25 Anion Gap 8 BUN 22 H D Creatinine 1.3 H Creat Clearance w eGFR 40.61 Random Glucose 87 D Calcium 8.7 Total Bilirubin 0.7 AST 22 ALT 29 Alkaline Phosphatase 71 Total Protein 5.8 L Albumin 3.0 L Urine Color Dk. red Urine Appearance Clear Urine pH 6.5 D Ur Specific [place] 1.020 Urine Protein 3+ H Urine Glucose (UA) Trace H Urine Ketones Trace H Urine Blood 3+ H Urine Nitrite Positive Urine Bilirubin 1+ H Urine Urobilinogen 1.0 Ur Leukocyte Esterase 3+ H Urine WBC (Auto) >100 Urine RBC (Auto) >100 Ur Epithelial Cells Mod Blood Type A NEGATIVE Antibody Screen Negative 09/29/17 09/29/17 06:30 09:25 WBC 4.8 D RBC 3.42 L Hgb 10.5 L Hct 32.2 L MCV 94.2 MCH 30.6 MCHC 32.4 RDW 12.9 Plt Count 157 MPV 10.7 Absolute Neuts (auto) 2.7 L Absolute Lymphs (auto) 1.4 L Absolute Monos (auto) 0.5 L Absolute Eos (auto) 0.2 Absolute Basos (auto) 0.1 Neutrophils % 55.9 D Lymphocytes % 29.5 D Monocytes % 9.5 Eosinophils % 4.0 D Basophils % 1.1 PT with INR INR PTT (Actin FS) Sodium Potassium Chloride Carbon Dioxide Anion Gap BUN Creatinine Creat Clearance w eGFR Random Glucose Calcium Total Bilirubin AST ALT Alkaline Phosphatase Total Protein Albumin Urine Color Urine Appearance Urine pH Ur Specific [place] Urine Protein Urine Glucose (UA) Urine Ketones Urine Blood Urine Nitrite Urine Bilirubin Urine Urobilinogen Ur Leukocyte Esterase Urine WBC (Auto) Urine RBC (Auto) Ur Epithelial Cells Blood Type A NEGATIVE Antibody Screen Negative Active Medications Generic Name Dose Route Start Last Admin Trade Name Freq PRN Reason Stop Dose Admin Heparin Sodium (Porcine) 25, 500 mls @ 20 mls/hr 09/29/17 01:30 09/29/17 02: 00 000 unit/ Sodium Chloride IV 1,000 unit/hr TITR ELADIO 20 mls/hr Protocol Administration 1,000 UNIT/HR CEFTRIAXONE 1 G/50 ML PREMIX 50 mls @ 100 mls/hr 09/30/17 10:00 Ceftriaxone 1 Gm-D5w Bag IVPB DAILY ELADIO Sodium Chloride 1,000 mls @ 75 mls/hr 09/29/17 11:45 09/29/17 14:27 Normal Saline - IV 75 mls/hr ASDIR ELADIO Administration Metoprolol Succinate 50 mg 09/29/17 22:00 Toprol Xl - PO HS ELADIO Morphine Sulfate 1 mg 09/29/17 02:24 Morphine Sulfate IVPUSH Q8H PRN PAIN IMAGIN09/28/17 Ab/Pel CT -> (1) Left renal venous thrombosis, may be 2/2 tumor thrombus. Rec renal vein duplex. Marked enlargement of the Left kidney suggestive of hemorrhage, ?underlying neoplasm. Rec contrast MRI or CT kidney for f/u. (2) No hydronephrosis. Large Left renal cyst. (3) 3.4 x 2.6 cm heterogeneous Left adrenal mass, similar in size to 06/2013 CT, malignancy cannot be ruled out. Rec nonemergent surgery consult. (4) 1.9 x 1.5 cm Right adrenal gland adenoma. (5) Hepatic steatosis and borderline hepatomegaly. 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 (7) Small pericardial effusion. - Copy of this report provided to pt. ASSESSMENT/PLAN: 67yo F with PMH of Left renal cyst, lisa adrenal nodules, frequent UTIs and htn, presented with hematuria with clots, found to have renal vein thrombosis and Left renal hemorrhage. # hematuria - likely 2/2 renal vein thrombosis - f/u renal vein duplex - continue bladder irrigation - heparin drip - monitor cbc - Urology Consult - Vascular Surgery (Dr. Cheng) recs appreciated - pain control with Morphine 1mg IVpush q8hr prn # UTI - continue IV Ceftriaxone (Day 1) # ROOSEVELT - Cr improving - IVFs - monitor UOP # htn - continue home medication of Metoprolol 50mg - hold ARB # FEN - Fluids: NS @ 75 ml/hr - Electrolytes: wnl, continue to monitor - Nutrition: low sodium diet # Prophylaxis - DVT ppx with Heparin drip Visit type - Emergency Visit Emergency Visit: Yes ED Registration Date: 09/29/17 Care time: The patient presented to the Emergency Department on the above date and was hospitalized for further evaluation of their emergent condition. - New Patient This patient is new to me today: Yes Date on this admission: 09/29/17 - Critical Care Critical Care patient: No
--- NOTE | 2017-09-29 16:04 | PN ---
Teaching Attending Note Name of Resident: Jeannie Gamez (Nephrology) ATTENDING PHYSICIAN STATEMENT I saw and evaluated the patient. I reviewed the resident's note and discussed the case with the resident. I agree with the resident's findings and plan as documented. Renal Consult Please see consult filled out by resident. Pt is a 67 year old female with pmhx of HTN, anxiety, and renal cyst who presents to the ER with gross hematuria. She was found to have a renal vein thrombosis. I was called to evaluate her for ROOSEVELT. She says she has history of elevated creatinine. PMhx htn social hx denies allergies shellfish Current Medications Generic Name Dose Route Start Last Admin Trade Name Freq PRN Reason Stop Dose Admin Heparin Sodium (Porcine) 25, 500 mls @ 20 mls/hr 09/29/17 01:30 09/29/17 02: 00 000 unit/ Sodium Chloride IV 1,000 unit/hr TITR ELADIO 20 mls/hr Protocol Administration 1,000 UNIT/HR CEFTRIAXONE 1 G/50 ML PREMIX 50 mls @ 100 mls/hr 09/30/17 10:00 Ceftriaxone 1 Gm-D5w Bag IVPB DAILY ELADIO Sodium Chloride 1,000 mls @ 75 mls/hr 09/29/17 11:45 09/29/17 14:27 Normal Saline - IV 75 mls/hr ASDIR ELADIO Administration Metoprolol Succinate 50 mg 09/29/17 22:00 Toprol Xl - PO HS ELADIO Morphine Sulfate 1 mg 09/29/17 02:24 Morphine Sulfate IVPUSH Q8H PRN PAIN Laboratory Tests 11/01/16 09/27/17 09/28/17 12:50 10:45 19:19 WBC Hgb 11.5 Sodium Potassium Chloride Carbon Dioxide Anion Gap BUN Creatinine 1.5 H D 1.7 H Urine Protein Urine Blood 09/28/17 09/28/17 09/29/17 19:19 20:48 05:05 WBC Hgb Sodium 143 Potassium 4.1 Chloride 110 H Carbon Dioxide 25 Anion Gap 8 BUN 22 H D Creatinine 1.6 H 1.3 H Urine Protein 3+ H Urine Blood 3+ H 09/29/17 09:25 WBC 4.8 D Hgb 10.5 L Sodium Potassium Chloride Carbon Dioxide Anion Gap BUN Creatinine Urine Protein Urine Blood cardio s1s2 reg pulm clear GI soft, onese CBI ext edema neuro awake and alert skin neg rash Impression 1. ROOSEVELT 2. likely CKD 3. renal vein thrombosis 4. possible left renal hemorrhage 5. HTN Plan - will change fluids to 1/2 ns - urology eval - recommend heme/onc eval as well for malignancy vs hypercoag state - repeat labs in am - CBI per - monitor urine output - will follow Dr Campa
[2017-09-29 17:26] LABS: BASO % 0.6 % (0-2.0); EOS % 4.2 % (0-4.5); MCH 30.8 pg (25.7-33.7); MCHC 32.8 g/dl (32.0-36.0); MEAN PLT VOLUME 11.1 fl (7.5-11.1); NEUT % 62.8 % (42.8-82.8); PLATELET COUNT 160 K/MM3 (134-434); RDW 12.6 % (11.6-15.6); WHITE BLOOD COUNT 5.1 K/mm3 (4.0-10.0)
--- NOTE | 2017-09-29 18:09 | PN ---
Progress Note (short form) - Note Progress Note: Vascular Surgery Pt seen and examined. Explained CT results to pt. Pt states she has a cyst on her kidneys for years. is aware of this. Getting CBI. Not sure there is a clot in the renal vein. The vein could just be dilated from compression from the cyst. Can do renal vein duplex to see if we can see clot in the vein. Pt awaiting MRI. Cont IV heparin until we know for sure there is clot in the vein. Jamel Cheng DO
--- NOTE | 2017-09-29 18:30 | PN ---
Teaching Attending Note Name of Resident: Gaye Gray ATTENDING PHYSICIAN STATEMENT Time of evaluation: 10:30 AM I saw and evaluated the patient. I reviewed the resident's note and discussed the case with the resident. I agree with the resident's findings and plan as documented. SUBJECTIVE: Patient seen and examined. abdominal and flank pain improved. urine clearing, no fevers, chills or new complaints. OBJECTIVE: Vital Signs Period Temp Pulse Resp BP Sys/Reina Pulse Ox Last 24 Hr 97.7 F-98.7 F 72-77 18-20 123-158/51-87 96-96 Intake & Output 09/26/17 09/27/17 09/28/17 09/29/17 23:59 23:59 23:59 23:59 Intake Total 27332 Output Total 2608 80305 Balance -2600 -9715 Weight 200 lb 240 lb GEneral: sitting in chair in no acute distress CVS:S1S2 regular Chest: CTAB, no rales or wheezing abdomen:soft, obese, minimal Left CVA tenderness, mild suprapubic tenderness, no voluntary or involuntary guarding or rigidity noted Home Medication List Medication Instructions Recorded Confirmed Type Metoprolol Succinate [Toprol Xl] 50 mg PO HS 01/09/17 09/28/17 History Olmesartan Medoxomil [Benicar -] 20 mg PO DAILY 01/09/17 09/28/17 History Alprazolam [Xanax] 0.25 mg PO Q6H PRN 01/24/17 09/28/17 History Cefuroxime Axetil [Cefuroxime] 500 mg PO BID 09/28/17 09/29/17 History Furosemide [Lasix] 20 mg PO DAILY 09/28/17 09/29/17 History Active Medications Generic Name Dose Route Start Last Admin Trade Name Freq PRN Reason Stop Dose Admin Heparin Sodium (Porcine) 25, 500 mls @ 20 mls/hr 09/29/17 01:30 09/29/17 18: 25 000 unit/ Sodium Chloride IV 1,100 unit/hr TITR ELADIO 22 mls/hr Protocol Titration 1,000 UNIT/HR CEFTRIAXONE 1 G/50 ML PREMIX 50 mls @ 100 mls/hr 09/30/17 10:00 Ceftriaxone 1 Gm-D5w Bag IVPB DAILY ELADIO Sodium Chloride 1,000 mls @ 75 mls/hr 09/29/17 11:45 09/29/17 14:27 Normal Saline - IV 75 mls/hr ASDIR ELADIO Administration Metoprolol Succinate 50 mg 09/29/17 22:00 Toprol Xl - PO HS ELADIO Morphine Sulfate 1 mg 09/29/17 02:24 Morphine Sulfate IVPUSH Q8H PRN PAIN Laboratory Results - last 24 hr 09/28/17 09/28/17 09/28/17 19:19 19:19 19:19 WBC 6.9 D RBC 3.67 Hgb 11.5 Hct 34.2 MCV 93.1 MCH 31.2 MCHC 33.5 RDW 12.7 Plt Count 178 MPV 10.9 Absolute Neuts (auto) 5.0 L Absolute Lymphs (auto) 1.2 L Absolute Monos (auto) 0.5 L Absolute Eos (auto) 0.1 Absolute Basos (auto) 0.0 L Neutrophils % 73.1 D Lymphocytes % 17.6 D Monocytes % 7.4 Eosinophils % 1.3 Basophils % 0.6 PT with INR 11.60 INR 1.03 PTT (Actin FS) 27.9 Sodium 139 Potassium 4.1 Chloride 106 Carbon Dioxide 24 Anion Gap 9 BUN 29 H Creatinine 1.6 H Creat Clearance w eGFR 31.96 Random Glucose 111 H Calcium 8.8 Total Bilirubin 0.7 D AST 20 ALT 33 Alkaline Phosphatase 80 Total Protein 6.9 Albumin 3.6 Urine Color Urine Appearance Urine pH Ur Specific [place] Urine Protein Urine Glucose (UA) Urine Ketones Urine Blood Urine Nitrite Urine Bilirubin Urine Urobilinogen Ur Leukocyte Esterase Urine WBC (Auto) Urine RBC (Auto) Ur Epithelial Cells Blood Type Antibody Screen 09/28/17 09/28/17 09/29/17 19:19 20:48 05:05 WBC RBC Hgb Hct MCV MCH MCHC RDW Plt Count MPV Absolute Neuts (auto) Absolute Lymphs (auto) Absolute Monos (auto) Absolute Eos (auto) Absolute Basos (auto) Neutrophils % Lymphocytes % Monocytes % Eosinophils % Basophils % PT with INR INR PTT (Actin FS) Sodium 143 Potassium 4.1 Chloride 110 H Carbon Dioxide 25 Anion Gap 8 BUN 22 H D Creatinine 1.3 H Creat Clearance w eGFR 40.61 Random Glucose 87 D Calcium 8.7 Total Bilirubin 0.7 AST 22 ALT 29 Alkaline Phosphatase 71 Total Protein 5.8 L Albumin 3.0 L Urine Color Dk. red Urine Appearance Clear Urine pH 6.5 D Ur Specific [place] 1.020 Urine Protein 3+ H Urine Glucose (UA) Trace H Urine Ketones Trace H Urine Blood 3+ H Urine Nitrite Positive Urine Bilirubin 1+ H Urine Urobilinogen 1.0 Ur Leukocyte Esterase 3+ H Urine WBC (Auto) >100 Urine RBC (Auto) >100 Ur Epithelial Cells Mod Blood Type A NEGATIVE Antibody Screen Negative 09/29/17 09/29/17 09/29/17 06:30 09:25 16:00 WBC 4.8 D RBC 3.42 L Hgb 10.5 L Hct 32.2 L MCV 94.2 MCH 30.6 MCHC 32.4 RDW 12.9 Plt Count 157 MPV 10.7 Absolute Neuts (auto) 2.7 L Absolute Lymphs (auto) 1.4 L Absolute Monos (auto) 0.5 L Absolute Eos (auto) 0.2 Absolute Basos (auto) 0.1 Neutrophils % 55.9 D Lymphocytes % 29.5 D Monocytes % 9.5 Eosinophils % 4.0 D Basophils % 1.1 PT with INR INR PTT (Actin FS) 49.0 H D Sodium Potassium Chloride Carbon Dioxide Anion Gap BUN Creatinine Creat Clearance w eGFR Random Glucose Calcium Total Bilirubin AST ALT Alkaline Phosphatase Total Protein Albumin Urine Color Urine Appearance Urine pH Ur Specific [place] Urine Protein Urine Glucose (UA) Urine Ketones Urine Blood Urine Nitrite Urine Bilirubin Urine Urobilinogen Ur Leukocyte Esterase Urine WBC (Auto) Urine RBC (Auto) Ur Epithelial Cells Blood Type A NEGATIVE Antibody Screen Negative ASSESSMENT AND PLAN: 67 yof with PMhx of left renal cyst, left adrenal nodule admitted with hematuria /abdominal and flank pain, found with renal vein thrombosis and left renal haemorrhage. -left renal vein thrombosis -Left renal haemorrhage -Acute blood loss anemia -Left adrenal nodule -Acute urinary retention -Complicated UTI Plan: vascular/nephrology input appreciated. check renal duplex. Await urology input, sent by Dr. Jane, aware of the patient. will follow up recs. On heparin drip, hematuria has improved. Monitor CBC q8h for now CBI. Ceftriaxone, follow up urine cultures. Dispo pending resolution of medical issues. Plan discussed with patient in detail, all questions answered.
[2017-09-29] MEDS ORDERED: HEPARIN NA (PORCINE) 5,000 UNITS/ML 1ML VIAL IVPUSH PRN (18:36)
[2017-09-29] MEDS: METOPROLOL SUCCINATE 50 MG TAB.SR.24H (FP) PO SCH (21:14)
--- NOTE | 2017-09-29 23:07 | CON.GU ---
Consult Consult Specialty:: Referred by:: medicine Reason for Consultation:: renal bleeding, renal vein thrombosis and gross hematuria - History of Present Illness Chief Complaint: renal bleeding, renal vein thrombosis and gross hematuria History of Present Illness: 67 year old female who presents with gross hematuria. She began having this problem earlier this week and was originally scheduled to have an outpatient CT scan on 09/29/17, however on 09/28 she came to the ER with gross hematuria, clots and abdominal pain. She is being treated for a UTI. CT scan in ER revealed an enlarged left kidney with bleed, renal vein thrombosis and a large cyst. This cyst has been followed yearly with CT and MRIs and has been stable. In addition, she has a 3cm adrenal mass, similarly stable over the last 4 years. She had a bladder irrigation and the urine is clearing. - History Source History Provided By: Patient, Medical Record Limitations to Obtaining History: No Limitations - Past Medical History Renal/: Yes: Hematuria, UTI, Other ...: No - Alcohol/Substance Use Hx Alcohol Use: No - Smoking History Smoking history: Never smoked Have you smoked in the past 12 months: No Home Medications - Allergies Allergies/Adverse Reactions: Allergies Allergy/AdvReac Type Severity Reaction Status Date / Time shellfish derived AdvReac Intermediate Hives Verified 09/28/17 18:15 - Home Medications Home Medications: Ambulatory Orders Metoprolol Succinate [Toprol Xl] 50 mg PO HS 01/09/17 Olmesartan Medoxomil [Benicar -] 20 mg PO DAILY 01/09/17 Alprazolam [Xanax] 0.25 mg PO Q6H PRN 01/24/17 Cefuroxime Axetil [Cefuroxime] 500 mg PO BID 09/28/17 Furosemide [Lasix] 20 mg PO DAILY 09/28/17 Review of Systems - Review of Systems Constitutional: denies: Fever, Loss of Appetite Genitourinary: reports: Dysuria, Frequency, Hematuria, Incontinence. denies: Flank Pain Physical Exam- Vital Signs: Vital Signs Temperature 98.7 F 09/29/17 18:08 Pulse Rate 77 09/29/17 21:15 Respiratory Rate 18 09/29/17 21:15 Blood Pressure 128/41 09/29/17 21:15 O2 Sat by Pulse Oximetry (%) 97 12/22/17 20:47 Constitutional: Yes: Well Nourished, No Distress, Calm Gastrointestinal: Yes: Soft, Abdomen, Obese Renal/: Yes: Edwards Present, Hematuria. No: Bladder Distention, CVA Tenderness - Left, CVA Tenderness - Right Labs: CBC, BMP 09/29/17 16:00 09/29/17 05:05 Imaging - Results Cat Scan: Report Reviewed Problem List - Problems (1) Hematuria Assessment/Plan: continue with ABX and CBI for now MRI with contrast once her creatinine/GFR improve Code(s): R31.9 - HEMATURIA, UNSPECIFIED Qualifiers: Hematuria type: gross Qualified Code(s): R31.0 - Gross hematuria (2) Renal vein thrombosis Assessment/Plan: patient on heparin. Vascular consultation Code(s): I82.3 - EMBOLISM AND THROMBOSIS OF RENAL VEIN (3) UTI (urinary tract infection) Assessment/Plan: antibiotics. Code(s): N39.0 - URINARY TRACT INFECTION, SITE NOT SPECIFIED Qualifiers: Urinary tract infection type: site unspecified Hematuria presence: with hematuria Qualified Code(s): N39.0 - Urinary tract infection, site not specified; R31.9 - Hematuria, unspecified; R31.9 - Hematuria, unspecified
[2017-09-29 23:38] LABS: EOS # 0.2 # (0-4.5); LYMPH # 1.2 (8-40); MONO # 0.4 # (3.8-10.2); NEUT # 3.2 # (42.8-82.8)
[2017-09-30] MEDS: HEPARIN - 25,000 UNIT in SODIUM CHLORIDE 495 ML IV SCH (02:26)
[2017-09-30] MEDS: CEFTRIAXONE 1 G/50 ML PREMIX 50 ML IVPB SCH (09:06)
[2017-09-30 09:21] LABS: BASO % 0.8 % (0-2.0); EOS # 0.2 # (0-4.5); EOS % 2.9 % (0-4.5); LYMPH # 1.2 (8-40); MCH 30.1 pg (25.7-33.7); MCHC 32.1 g/dl (32.0-36.0); MEAN CELL VOLUME 93.9 fl (80-96); MEAN PLT VOLUME 10.4 fl (7.5-11.1); MONO # 0.3 # (3.8-10.2); NEUT # 3.5 # (42.8-82.8); NEUT % 68.3 % (42.8-82.8); PLATELET COUNT 157 K/MM3 (134-434); RDW 12.9 % (11.6-15.6); WHITE BLOOD COUNT 5.2 K/mm3 (4.0-10.0)
[2017-09-30 09:51] LABS: ANION GAP 8 (8-16); CALCIUM 8.1 mg/dL (8.5-10.1); CO2 23 mmol/L (21-32); CREATININE 1.3 mg/dL (0.55-1.02); GLUCOSE,RANDOM 146 mg/dL (74-106)
--- NOTE | 2017-09-30 14:49 | PN ---
Teaching Attending Note Name of Resident: Elli Becerril ATTENDING PHYSICIAN STATEMENT Time of evaluation: 8:10 AM I saw and evaluated the patient. I reviewed the resident's note and discussed the case with the resident. I agree with the resident's findings and plan as documented. SUBJECTIVE: Patient seen and examined, abdominal and back symptoms improved. intermittent hematuria, mancilla changed this AM as clogged from clots. No fevers/chills, tolerating PO well. OBJECTIVE: Vital Signs Period Temp Pulse Resp BP Sys/Reina Pulse Ox Last 24 Hr 97.5 F-98.7 F 72-77 18-20 124-138/41-78 97 Intake & Output 09/27/17 09/28/17 09/29/17 09/30/17 23:59 23:59 23:59 23:59 Intake Total 41380 6955 Output Total 2606 65919 85165 Balance -7455 -7194 -5171 Weight 200 lb 240 lb 237 lb General: sitting in bed in no acute distress CVs:S1s2 regular Chest: CTAB, no rales or wheezing abdomen: soft, obese, no suprapubic or left CVA tenderness, no voluntary or involuntary guarding or rigidity, positive bowel sounds Extremities: no edema Home Medication List Medication Instructions Recorded Confirmed Type Metoprolol Succinate [Toprol Xl] 50 mg PO HS 01/09/17 09/28/17 History Olmesartan Medoxomil [Benicar -] 20 mg PO DAILY 01/09/17 09/28/17 History Alprazolam [Xanax] 0.25 mg PO Q6H PRN 01/24/17 09/28/17 History Cefuroxime Axetil [Cefuroxime] 500 mg PO BID 09/28/17 09/29/17 History Furosemide [Lasix] 20 mg PO DAILY 09/28/17 09/29/17 History Active Medications Generic Name Dose Route Start Last Admin Trade Name Freq PRN Reason Stop Dose Admin Alprazolam 0.5 mg 09/30/17 14:46 Xanax - PO 09/30/17 14:47 ONCE ONE Heparin Sodium (Porcine) 1,000 unit 09/29/17 18:36 09/29/17 18:46 Heparin - IVPUSH 1,000 unit PRN PRN Administration Heparin Heparin Sodium (Porcine) 25, 500 mls @ 20 mls/hr 09/29/17 01:30 09/30/17 10: 40 000 unit/ Sodium Chloride IV 1,050 unit/hr TITR ELADIO 21 mls/hr Protocol Titration 1,000 UNIT/HR CEFTRIAXONE 1 G/50 ML PREMIX 50 mls @ 100 mls/hr 09/30/17 10:00 09/30/17 09: 06 Ceftriaxone 1 Gm-D5w Bag IVPB 100 mls/hr DAILY ELADIO Administration Sodium Chloride 1,000 mls @ 75 mls/hr 09/29/17 11:45 09/29/17 14:27 Normal Saline - IV 75 mls/hr ASDIR ELADIO Administration Metoprolol Succinate 50 mg 09/29/17 22:00 09/29/17 21:14 Toprol Xl - PO 50 mg HS ELADIO Administration Morphine Sulfate 1 mg 09/29/17 02:24 Morphine Sulfate IVPUSH Q8H PRN PAIN Laboratory Results - last 24 hr 09/29/17 09/29/17 09/29/17 16:00 16:00 21:15 WBC 5.1 RBC 3.26 L Hgb 10.1 L Hct 30.7 L MCV 94.0 MCH 30.8 MCHC 32.8 RDW 12.6 Plt Count 160 MPV 11.1 Absolute Neuts (auto) 3.2 L Absolute Lymphs (auto) 1.2 L Absolute Monos (auto) 0.4 L Absolute Eos (auto) 0.2 Absolute Basos (auto) 0.0 L Neutrophils % 62.8 Lymphocytes % 23.8 Monocytes % 8.6 Eosinophils % 4.2 Basophils % 0.6 PTT (Actin FS) 49.0 H D 79.4 H D Sodium Potassium Chloride Carbon Dioxide Anion Gap BUN Creatinine Random Glucose Calcium 09/30/17 09/30/17 09/30/17 08:45 08:45 08:45 WBC 5.2 RBC 3.28 L Hgb 9.9 L Hct 30.8 L MCV 93.9 MCH 30.1 MCHC 32.1 RDW 12.9 Plt Count 157 MPV 10.4 Absolute Neuts (auto) Absolute Lymphs (auto) Absolute Monos (auto) Absolute Eos (auto) Absolute Basos (auto) Neutrophils % 68.3 Lymphocytes % 22.3 Monocytes % 5.7 Eosinophils % 2.9 Basophils % 0.8 PTT (Actin FS) 52.8 H D Sodium 144 Potassium 3.9 Chloride 113 H Carbon Dioxide 23 Anion Gap 8 BUN 21 H Creatinine 1.3 H Random Glucose 146 H D Calcium 8.1 L Microbiology 09/28/17 20:48 Urine - Urine Clean Catch Urine Culture - Final NO GROWTH OBTAINED Renal duplex with ultrasound - limited visualized of renal vein ASSESSMENT AND PLAN: 67 yof with PMhx of left renal cyst, left adrenal nodule admitted with hematuria /abdominal and flank pain, found with renal vein thrombosis and left renal haemorrhage. -left renal vein thrombosis -Left renal haemorrhage -Acute blood loss anemia -Left adrenal nodule -Acute urinary retention -Complicated UTI Plan: vascular/nephrology input appreciated. Renal duplex noted, inconclusive. MRI abdomen to assess further. Await urology input, sent by Dr. Jane, aware of the patient. will follow up recs. On heparin drip, hematuria has improved. Hb with some trending down, Change to CBC q12h, transfuse prn. CBI. Ceftriaxone day 3, urine cultures neg, continue for now. Dispo pending resolution of medical issues. Plan discussed with patient in detail, all questions answered.
[2017-09-30] MEDS ORDERED: ALPRAZolam 0.25 MG TABLET PO ONE (16:15)
[2017-09-30] MEDS: SODIUM CHLORIDE 1,000 ML IV SCH (19:00)
[2017-09-30] MEDS: METOPROLOL SUCCINATE 50 MG TAB.SR.24H (FP) PO SCH (21:46)
[2017-10-01] MEDS ORDERED: HEPARIN SOD,PORK IN 0.45% NACL 25,000 UNITS/500 ML INFUS.BAG IVPB SCH (00:45)
[2017-10-01 08:27] LABS: BASO % 0.9 % (0-2.0); EOS # 0.2 # (0-4.5); EOS % 4.4 % (0-4.5); LYMPH # 1.5 (8-40); MCH 30.3 pg (25.7-33.7); MCHC 32.1 g/dl (32.0-36.0); MEAN CELL VOLUME 94.4 fl (80-96); MEAN PLT VOLUME 10.5 fl (7.5-11.1); MONO # 0.4 # (3.8-10.2); NEUT # 2.1 # (42.8-82.8); NEUT % 49.2 % (42.8-82.8); PLATELET COUNT 153 K/MM3 (134-434); RDW 12.7 % (11.6-15.6); WHITE BLOOD COUNT 4.2 K/mm3 (4.0-10.0)
[2017-10-01 08:57] LABS: ANION GAP 8 (8-16); CALCIUM 8.3 mg/dL (8.5-10.1); CO2 24 mmol/L (21-32); CREATININE 1.2 mg/dL (0.55-1.02); GLUCOSE,RANDOM 91 mg/dL (74-106)
[2017-10-01] MEDS: CEFTRIAXONE 1 G/50 ML PREMIX 50 ML IVPB SCH (09:28)
--- NOTE | 2017-10-01 10:22 | PN ---
Progress Note (short form) - Note Progress Note: RENAL Pt is awake and alert Had MRI yesterday tells me that her mother from renal cancer when she was 75 Last Vital Signs Temp Pulse Resp BP Pulse Ox 98.2 F 66 20 116/70 98 10/01/17 06:00 10/01/17 06:00 10/01/17 06:00 10/01/17 06:00 09/30/17 21:00 lungs clear cvs s1s2 rr abd soft ext +edema neuro a+ox3 CBC, BMP 10/01/17 08:00 10/01/17 08:05 Current Medications Generic Name Dose Route Start Last Admin Trade Name Freq PRN Reason Stop Dose Admin Heparin Sodium (Porcine) 1,000 unit 09/29/17 18:36 09/29/17 18:46 Heparin - IVPUSH 1,000 unit PRN PRN Administration Heparin CEFTRIAXONE 1 G/50 ML PREMIX 50 mls @ 100 mls/hr 09/30/17 10:00 10/01/17 09: 28 Ceftriaxone 1 Gm-D5w Bag IVPB 100 mls/hr DAILY ELADIO Administration Sodium Chloride 1,000 mls @ 75 mls/hr 09/29/17 11:45 09/30/17 19:00 Normal Saline - IV 75 mls/hr ASDIR ELADIO Administration HEPARIN SOD,PORK IN 0.45% NACL 25,000 units in 500 mls @ 20 mls/hr 10/01/17 00 :45 10/01/17 03:47 Heparin-1/2ns 25,000 Units/500 IVPB 1,050 unit/hr TITR ELADIO 21 mls/hr Protocol Administration 1,000 UNIT/HR Metoprolol Succinate 50 mg 09/29/17 22:00 09/30/17 21:46 Toprol Xl - PO 50 mg HS ELADIO Administration Morphine Sulfate 1 mg 09/29/17 02:24 Morphine Sulfate IVPUSH Q8H PRN PAIN MRI report reviewed. Markedly enlarged left kidney with a cyst like structure Impression 1. ROOSEVELT- improved 2. likely CKD 3. renal vein thrombosis 4. markedly enlarged left kidney 5. HTN Plan - keep on fluids - urology eval- pt follow up with Dr Jane for left kidney cyst - will likely need nephrectomy, would do renal scan to determine split function MV
--- NOTE | 2017-10-01 12:05 | PN ---
Teaching Attending Note Name of Resident: . ATTENDING PHYSICIAN STATEMENT SUBJECTIVE: Patient seen and examined. Had some suprapubic pressure ealier, that was relieved with mancilla flushing with pink urine. Intermittent flank pain, none currently. No fevers, chills or new complaints. OBJECTIVE: Vital Signs Period Temp Pulse Resp BP Sys/Reina Pulse Ox Last 24 Hr 97.8 F-98.2 F 64-87 18-20 116-130/68-73 98 Intake & Output 09/28/17 09/29/17 09/30/17 10/01/17 23:59 23:59 23:59 23:59 Intake Total 45240 68157 63860 Output Total 2600 57286 59724 02667 Balance -1652 -1483 -8545 -5428 Weight 200 lb 240 lb 237 lb 240 lb General: sitting in bed in no acute distress CVS:S1S2 regular Chest: no rales or wheezing abdomen: soft, obese, mild suprapubic tenderness, no left CVA tenderness currently, positive bowel sounds extremities: no edema Home Medication List Medication Instructions Recorded Confirmed Type Metoprolol Succinate [Toprol Xl] 50 mg PO HS 01/09/17 09/28/17 History Olmesartan Medoxomil [Benicar -] 20 mg PO DAILY 01/09/17 09/28/17 History Alprazolam [Xanax] 0.25 mg PO Q6H PRN 01/24/17 09/28/17 History Cefuroxime Axetil [Cefuroxime] 500 mg PO BID 09/28/17 09/29/17 History Furosemide [Lasix] 20 mg PO DAILY 09/28/17 09/29/17 History Active Medications Generic Name Dose Route Start Last Admin Trade Name Freq PRN Reason Stop Dose Admin Heparin Sodium (Porcine) 1,000 unit 09/29/17 18:36 09/29/17 18:46 Heparin - IVPUSH 1,000 unit PRN PRN Administration Heparin CEFTRIAXONE 1 G/50 ML PREMIX 50 mls @ 100 mls/hr 09/30/17 10:00 10/01/17 09: 28 Ceftriaxone 1 Gm-D5w Bag IVPB 100 mls/hr DAILY ELADIO Administration Sodium Chloride 1,000 mls @ 75 mls/hr 09/29/17 11:45 09/30/17 19:00 Normal Saline - IV 75 mls/hr ASDIR ELADIO Administration HEPARIN SOD,PORK IN 0.45% NACL 25,000 units in 500 mls @ 20 mls/hr 10/01/17 00 :45 10/01/17 03:47 Heparin-1/2ns 25,000 Units/500 IVPB 1,050 unit/hr TITR ELADIO 21 mls/hr Protocol Administration 1,000 UNIT/HR Metoprolol Succinate 50 mg 09/29/17 22:00 09/30/17 21:46 Toprol Xl - PO 50 mg HS ELADIO Administration Morphine Sulfate 1 mg 09/29/17 02:24 Morphine Sulfate IVPUSH Q8H PRN PAIN Laboratory Results - last 24 hr 10/01/17 10/01/17 10/01/17 08:00 08:05 08:05 WBC 4.2 RBC 3.13 L Hgb 9.5 L Hct 29.5 L MCV 94.4 MCH 30.3 MCHC 32.1 RDW 12.7 Plt Count 153 MPV 10.5 Neutrophils % 49.2 D Lymphocytes % 35.9 D Monocytes % 9.6 Eosinophils % 4.4 Basophils % 0.9 PTT (Actin FS) 54.9 H Sodium 144 Potassium 4.1 Chloride 112 H Carbon Dioxide 24 Anion Gap 8 BUN 16 D Creatinine 1.2 H Random Glucose 91 D Calcium 8.3 L Microbiology 09/28/17 20:48 Urine - Urine Clean Catch Urine Culture - Final NO GROWTH OBTAINED MRI abdomen- Markedly enlarged and heterogeneously enhancing left kidney likely secondary to infiltrative neoplasm extending to the 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 Left gonadal vein thrombosis. 12.2 x 5.7 cm left renal cyst like structure likely severely dilated calyx. 3.0 cm left adrenal gland lesion with imaging characteristics suggestive of adenoma. Fatty infiltration of the liver. ASSESSMENT AND PLAN: 67 yof with PMhx of left renal cyst, left adrenal nodule admitted with hematuria /abdominal and flank pain, found with renal vein thrombosis and left renal haemorrhage. -left renal vein thrombosis -Left renal haemorrhage -Acute blood loss anemia -Left adrenal nodule -Acute urinary retention -Complicated UTI Plan: vascular/nephrology input appreciated. Renal duplex noted, inconclusive. MRI abdomen noted. Discussed with Dr Cheng, anticipate needs left nephrectomy. Discussed with Dr. Rivera, will follow up for additional srecs. Continue heparin drip, CBI, monitor h/h. transfuse prn for Hb < 8 Ceftriaxone day 4, urine cultures neg, continue for now. Dispo pending resolution of medical issues. Plan discussed with patient in detail, all questions answered
[2017-10-01] MEDS ORDERED: HEPARIN NA (PORCINE) 5,000 UNITS/ML 1ML VIAL IVPUSH PRN (16:12)
--- NOTE | 2017-10-01 20:30 | PN ---
Progress Note (short form) - Note Progress Note: Patient without new complaints. She continues to have hematuria on irrigation however it is improving. Her hemoglobin is 9.5 today down from 11.5, 3 days ago on admission. MRI was done it was read as an infiltrative process in the left kidney onsistent with a malignancy and a renal vein thrombosis. patient continues to be on heparin to protect against propagation of the thrombus. I had a long discussion with the patient and her family today. This includes a differential diagnosis of a renal cell carcinoma or less likely a lymphoma originating in the kidney. The possibility of a biopsy was also discussed. I am recommending that we transfuse her two units and follow her hemoglobin level. If it remains stable the plan should be for nephrectomy. If it continues to go down, angiography with possible embolization may also be considered preoperatively. Problem List - Problems (1) Hematuria Code(s): R31.9 - HEMATURIA, UNSPECIFIED Qualifiers: Hematuria type: gross Qualified Code(s): R31.0 - Gross hematuria (2) Renal vein thrombosis Code(s): I82.3 - EMBOLISM AND THROMBOSIS OF RENAL VEIN (3) UTI (urinary tract infection) Code(s): N39.0 - URINARY TRACT INFECTION, SITE NOT SPECIFIED Qualifiers: Urinary tract infection type: site unspecified Hematuria presence: with hematuria Qualified Code(s): N39.0 - Urinary tract infection, site not specified; R31.9 - Hematuria, unspecified; R31.9 - Hematuria, unspecified
[2017-10-01] MEDS: METOPROLOL SUCCINATE 50 MG TAB.SR.24H (FP) PO SCH (22:40)
[2017-10-01] MEDS: HEPARIN NA (PORCINE) 5,000 UNITS/ML 1ML VIAL IVPUSH PRN (22:41)
[2017-10-01] MEDS: HEPARIN - 25,000 UNIT in SODIUM CHLORIDE 495 ML IV SCH (22:47)
[2017-10-02] MEDS: SODIUM CHLORIDE 1,000 ML IV SCH ×2 (02:45→17:04)
[2017-10-02 08:15] LABS: BASO # 0.1 # (0.1-1); EOS # 0.3 # (0-4.5); LYMPH # 1.6 (8-40); MCH 30.3 pg (25.7-33.7); MCHC 32.9 g/dl (32.0-36.0); MEAN CELL VOLUME 92.1 fl (80-96); MEAN PLT VOLUME 10.8 fl (7.5-11.1); MONO # 0.6 # (3.8-10.2); NEUT # 2.6 # (42.8-82.8); NEUT % 51.3 % (42.8-82.8); PLATELET COUNT 150 K/MM3 (134-434); RDW 14.1 % (11.6-15.6); WHITE BLOOD COUNT 5.1 K/mm3 (4.0-10.0)
[2017-10-02 08:28] LABS: ANION GAP 6 (8-16); CALCIUM 8.1 mg/dL (8.5-10.1); CO2 25 mmol/L (21-32); CREATININE 1.3 mg/dL (0.55-1.02); GLUCOSE,RANDOM 92 mg/dL (74-106); PHOSPHOROUS 3.7 mg/dL (2.5-4.9)
[2017-10-02] MEDS: CEFTRIAXONE 1 G/50 ML PREMIX 50 ML IVPB SCH (09:49)
--- NOTE | 2017-10-02 11:25 | PN ---
Progress Note (short form) - Note Progress Note: currently asymptomatic. denies CP, SOB< fever, chills, abdominal pain, N/V/C/D. urine is straw color Current Medications Generic Name Dose Route Start Last Admin Trade Name Freq PRN Reason Stop Dose Admin Heparin Sodium (Porcine) 1,000 unit 10/01/17 16:12 10/01/17 22:41 Heparin - IVPUSH 1,000 unit PRN PRN Administration Heparin Heparin Sodium (Porcine) 5,000 unit 10/01/17 16:12 Heparin - IVPUSH PRN PRN Heparin CEFTRIAXONE 1 G/50 ML PREMIX 50 mls @ 100 mls/hr 09/30/17 10:00 10/02/17 09: 49 Ceftriaxone 1 Gm-D5w Bag IVPB 100 mls/hr DAILY ELADIO Administration Sodium Chloride 1,000 mls @ 75 mls/hr 09/29/17 11:45 10/02/17 02:45 Normal Saline - IV 75 mls/hr ASDIR ELADIO Administration Heparin Sodium (Porcine) 25, 500 mls @ 20 mls/hr 10/01/17 16:15 10/02/17 08: 44 000 unit/ Sodium Chloride IV 1,100 unit/hr TITR ELADIO 22 mls/hr Protocol Titration 1,000 UNIT/HR Metoprolol Succinate 50 mg 09/29/17 22:00 10/01/17 22:40 Toprol Xl - PO 50 mg HS ELADIO Administration Last Vital Signs Temp Pulse Resp BP Pulse Ox 97.8 F 66 20 134/68 98 10/02/17 06:00 10/02/17 06:00 10/02/17 06:00 10/02/17 06:00 10/01/17 21:00 General NAD CV S1 S2 RRR no murmur/rub/gallop Lungs CTA B/L no wheezing/rales/rhonchi Abdomen soft NT/ND obese Extremities trace pitting edema CBCD WBC 5.1 K/mm3 (4.0-10.0) 10/02/17 06:30 RBC 3.59 M/mm3 (3.60-5.2) L 10/02/17 06:30 Hgb 10.9 GM/dL (10.7-15.3) D 10/02/17 06:30 Hct 33.1 % (32.4-45.2) 10/02/17 06:30 MCV 92.1 fl (80-96) 10/02/17 06:30 MCHC 32.9 g/dl (32.0-36.0) 10/02/17 06:30 RDW 14.1 % (11.6-15.6) D 10/02/17 06:30 Plt Count 150 K/MM3 (134-434) 10/02/17 06:30 MPV 10.8 fl (7.5-11.1) 10/02/17 06:30 CMP Sodium 143 mmol/L (136-145) 10/02/17 06:30 Potassium 3.9 mmol/L (3.5-5.1) 10/02/17 06:30 Chloride 112 mmol/L (98-107) H 10/02/17 06:30 Carbon Dioxide 25 mmol/L (21-32) 10/02/17 06:30 Anion Gap 6 (8-16) L 10/02/17 06:30 BUN 17 mg/dL (7-18) 10/02/17 06:30 Creatinine 1.3 mg/dL (0.55-1.02) H 10/02/17 06:30 Creat Clearance w eGFR 40.61 (>60) 09/29/17 05:05 Calcium 8.1 mg/dL (8.5-10.1) L 10/02/17 06:30 Total Bilirubin 0.7 mg/dL (0.2-1.0) 09/29/17 05:05 AST 22 U/L (15-37) 09/29/17 05:05 ALT 29 U/L (12-78) 09/29/17 05:05 Alkaline Phosphatase 71 U/L (45-117) 09/29/17 05:05 Total Protein 5.8 g/dl (6.4-8.2) L 09/29/17 05:05 Albumin 3.0 g/dl (3.4-5.0) L 09/29/17 05:05 67 yo F with PMhx of left renal cyst, left adrenal nodule admitted with hematuria/abdominal and flank pain, found with renal vein thrombosis and left renal haemorrhage. 1. L kidney mass with L renal vein thrombosis- hematuria has cleared at this point. plan is for nephrectomy vs renal vein embolization however the former is preferred as pt is hemodynamically stable and high risk of malignancy or lymphoma. urology and nephrology on board. will consider oncology once tissue sample is obtained. cont heparin ggt. pain control 2. Acute blood loss anemia- s/p 2 units PRBC yesterday without appropriate response. now urine is clearing. will repeat cbc to ensure stable. no indication for txn at this time 3. L adrenal nodule- 3cm. incrased in size from 2012 4. UTI- on ceftriaxone day 3. Cx negative 5. DVT ppx- hep ggt 6. case d/w family present at bedside. all questions answered. verbalized they may want to go to [facility] as they have family that works there. informed then there is no medical necessity to transfer to [place] and would be preference. Options to go there would entail either signing out AMA and going there or paying for transfer to other facility. all questions answered Visit type - Emergency Visit Emergency Visit: Yes ED Registration Date: 09/29/17 Care time: The patient presented to the Emergency Department on the above date and was hospitalized for further evaluation of their emergent condition. - New Patient This patient is new to me today: Yes Date on this admission: 10/02/17 - Critical Care Critical Care patient: No - Discharge Referral Referred to [facility] Med P.C.: No
--- NOTE | 2017-10-02 13:58 | PN ---
Progress Note, Physician History of Present Illness: Pt seen and examined at bedside. She is awake and alert. She denies shortness of breath. - Current Medication List Current Medications: Active Medications Heparin Sodium (Porcine) (Heparin -) 1,000 unit IVPUSH PRN PRN PRN Reason: Heparin Last Admin: 10/01/17 22:41 Dose: 1,000 unit Heparin Sodium (Porcine) (Heparin -) 5,000 unit IVPUSH PRN PRN PRN Reason: Heparin CEFTRIAXONE 1 G/50 ML PREMIX (Ceftriaxone 1 Gm-D5w Bag) 50 mls @ 100 mls/hr IVPB DAILY ELADIO Last Admin: 10/02/17 09:49 Dose: 100 mls/hr Sodium Chloride (Normal Saline -) 1,000 mls @ 75 mls/hr IV ASDIR ELADIO Last Admin: 10/02/17 02:45 Dose: 75 mls/hr Heparin Sodium (Porcine) 25, (000 unit/ Sodium Chloride) 500 mls @ 20 mls/hr IV TITR ELADIO; 1,000 UNIT/HR PRN Reason: Protocol Last Titration: 10/02/17 08:44 Dose: 1,100 unit/hr, 22 mls/hr Metoprolol Succinate (Toprol Xl -) 50 mg PO HS ELADIO Last Admin: 10/01/17 22:40 Dose: 50 mg - Objective Vital Signs: Vital Signs Temperature 97.8 F 10/02/17 06:00 Pulse Rate 74 10/02/17 10:00 Respiratory Rate 20 10/02/17 10:00 Blood Pressure 125/61 10/02/17 10:00 O2 Sat by Pulse Oximetry (%) 98 10/02/17 09:00 Constitutional: Yes: Calm Eyes: Yes: Conjunctiva Clear HENT: Yes: Atraumatic Cardiovascular: Yes: S1, S2 Respiratory: Yes: CTA Bilaterally Gastrointestinal: Yes: Soft Genitourinary: Yes: Edwards Present Edema: Yes Edema: LLE: Trace, RLE: Trace Neurological: Yes: Oriented Psychiatric: Yes: Oriented Labs: CBC, BMP 10/02/17 06:30 10/02/17 06:30 INR, PTT INR 1.03 (0.82-1.09) 09/28/17 19:19 - ....Imaging MRI: Report Reviewed Assessment/Plan Current Medications Generic Name Dose Route Start Last Admin Trade Name Freq PRN Reason Stop Dose Admin Heparin Sodium (Porcine) 1,000 unit 10/01/17 16:12 10/01/17 22:41 Heparin - IVPUSH 1,000 unit PRN PRN Administration Heparin Heparin Sodium (Porcine) 5,000 unit 10/01/17 16:12 Heparin - IVPUSH PRN PRN Heparin CEFTRIAXONE 1 G/50 ML PREMIX 50 mls @ 100 mls/hr 09/30/17 10:00 10/02/17 09: 49 Ceftriaxone 1 Gm-D5w Bag IVPB 100 mls/hr DAILY ELADIO Administration Sodium Chloride 1,000 mls @ 75 mls/hr 09/29/17 11:45 10/02/17 02:45 Normal Saline - IV 75 mls/hr ASDIR ELADIO Administration Heparin Sodium (Porcine) 25, 500 mls @ 20 mls/hr 10/01/17 16:15 10/02/17 08: 44 000 unit/ Sodium Chloride IV 1,100 unit/hr TITR ELADIO 22 mls/hr Protocol Titration 1,000 UNIT/HR Metoprolol Succinate 50 mg 09/29/17 22:00 10/01/17 22:40 Toprol Xl - PO 50 mg HS ELADIO Administration Impression 1. R[place] 2. likely CKD 3. renal vein thrombosis 4. possible left renal hemorrhage 5. HTN Plan - cont fluids - repeat labs in am - urology input appreciated - MRI reviewed - recommend heme/onc eval as well for malignancy vs hypercoag state - CBI per - monitor urine output - will follow Dr Campa
[2017-10-02] MEDS ORDERED: FLU VACCINE QUAD 60 MCG/0.5 ML (MDV 17-18) IM ONE (17:00)
[2017-10-02] MEDS: HEPARIN - 25,000 UNIT in SODIUM CHLORIDE 495 ML IV SCH (17:05)
[2017-10-02 17:41] LABS: MCH 30.8 pg (25.7-33.7); MCHC 33.2 g/dl (32.0-36.0); MEAN CELL VOLUME 92.6 fl (80-96); MEAN PLT VOLUME 11.5 fl (7.5-11.1); PLATELET COUNT 153 K/MM3 (134-434); RDW 13.9 % (11.6-15.6)
[2017-10-02] MEDS: METOPROLOL SUCCINATE 50 MG TAB.SR.24H (FP) PO SCH (21:23)
[2017-10-03] MEDS: SODIUM CHLORIDE 1,000 ML IV SCH ×2 (02:28→22:40)
[2017-10-03 07:48] LABS: MCH 30.6 pg (25.7-33.7); MCHC 32.9 g/dl (32.0-36.0); MEAN CELL VOLUME 92.8 fl (80-96); MEAN PLT VOLUME 10.6 fl (7.5-11.1); PLATELET COUNT 142 K/MM3 (134-434); RDW 13.9 % (11.6-15.6); WHITE BLOOD COUNT 5.9 K/mm3 (4.0-10.0)
[2017-10-03] MEDS: CEFTRIAXONE 1 G/50 ML PREMIX 50 ML IVPB SCH (09:58)
[2017-10-03] MEDS: HEPARIN NA (PORCINE) 5,000 UNITS/ML 1ML VIAL IVPUSH PRN ×2 (10:01→21:20)
[2017-10-03] MEDS: HEPARIN - 25,000 UNIT in SODIUM CHLORIDE 495 ML IV SCH ×2 (10:05→21:19)
--- NOTE | 2017-10-03 14:28 | PN ---
Progress Note, Physician History of Present Illness: Pt seen and examined at bedside. She has increased blood in her mancilla bag today. Pt says that she is being transferred to an outside hospital today for surgery. - Current Medication List Current Medications: Active Medications Heparin Sodium (Porcine) (Heparin -) 1,000 unit IVPUSH PRN PRN PRN Reason: Heparin Last Admin: 10/03/17 10:01 Dose: 1,000 unit Heparin Sodium (Porcine) (Heparin -) 5,000 unit IVPUSH PRN PRN PRN Reason: Heparin CEFTRIAXONE 1 G/50 ML PREMIX (Ceftriaxone 1 Gm-D5w Bag) 50 mls @ 100 mls/hr IVPB DAILY ELADIO Last Admin: 10/03/17 09:58 Dose: 100 mls/hr Sodium Chloride (Normal Saline -) 1,000 mls @ 75 mls/hr IV ASDIR ELADIO Last Admin: 10/03/17 02:28 Dose: 75 mls/hr Heparin Sodium (Porcine) 25, (000 unit/ Sodium Chloride) 500 mls @ 20 mls/hr IV TITR ELADIO; 1,000 UNIT/HR PRN Reason: Protocol Last Admin: 10/03/17 10:05 Dose: 1,200 unit/hr, 24 mls/hr Metoprolol Succinate (Toprol Xl -) 50 mg PO HS ELADIO Last Admin: 10/02/17 21:23 Dose: 50 mg - Objective Vital Signs: Vital Signs Temperature 97.7 F 10/03/17 10:00 Pulse Rate 66 10/03/17 10:00 Respiratory Rate 18 10/03/17 06:00 Blood Pressure 130/64 10/03/17 10:00 O2 Sat by Pulse Oximetry (%) 96 10/02/17 21:00 Constitutional: Yes: Calm Eyes: Yes: Conjunctiva Clear HENT: Yes: Atraumatic Cardiovascular: Yes: S1, S2 Respiratory: Yes: CTA Bilaterally Gastrointestinal: Yes: Soft, Abdomen, Obese Genitourinary: Yes: [place] Present, Hematuria Musculoskeletal: Yes: WNL Edema: Yes Edema: LLE: Trace, RLE: Trace Neurological: Yes: Oriented Psychiatric: Yes: Oriented Labs: CBC, BMP 10/03/17 06:25 10/02/17 06:30 INR, PTT INR 1.03 (0.82-1.09) 09/28/17 19:19 Problem List - Problems (1) ROOSEVELT (acute kidney injury) Code(s): N17.9 - ACUTE KIDNEY FAILURE, UNSPECIFIED (2) HTN (hypertension) Code(s): I10 - ESSENTIAL (PRIMARY) HYPERTENSION (3) Renal vein thrombosis Code(s): I82.3 - EMBOLISM AND THROMBOSIS OF RENAL VEIN Assessment/Plan Current Medications Generic Name Dose Route Start Last Admin Trade Name Freq PRN Reason Stop Dose Admin Heparin Sodium (Porcine) 1,000 unit 10/01/17 16:12 10/03/17 10:01 Heparin - IVPUSH 1,000 unit PRN PRN Administration Heparin Heparin Sodium (Porcine) 5,000 unit 10/01/17 16:12 Heparin - IVPUSH PRN PRN Heparin CEFTRIAXONE 1 G/50 ML PREMIX 50 mls @ 100 mls/hr 09/30/17 10:00 10/03/17 09: 58 Ceftriaxone 1 Gm-D5w Bag IVPB 100 mls/hr DAILY ELADIO Administration Sodium Chloride 1,000 mls @ 75 mls/hr 09/29/17 11:45 10/03/17 02:28 Normal Saline - IV 75 mls/hr ASDIR ELADIO Administration Heparin Sodium (Porcine) 25, 500 mls @ 20 mls/hr 10/01/17 16:15 10/03/17 10: 05 000 unit/ Sodium Chloride IV 1,200 unit/hr TITR ELADIO 24 mls/hr Protocol Administration 1,000 UNIT/HR Metoprolol Succinate 50 mg 09/29/17 22:00 10/02/17 21:23 Toprol Xl - PO 50 mg HS ELADIO Administration Impression 1. ROOSEVELT 2. likely CKD 3. renal vein thrombosis 4. possible left renal hemorrhage 5. HTN Plan - urology follow up - pt says she is being transferred for surgery - no bmp from today - recommend checking labs if pt is staying - recommend heme/onc eval as well for malignancy vs hypercoag state - CBI per - monitor urine output - will follow Dr Campa
[2017-10-03] MEDS ORDERED: LORazepam 2 MG/ML SDV VIAL IVPUSH ONE (15:09)
--- NOTE | 2017-10-03 15:30 | PN ---
Teaching Attending Note Name of Resident: Gaye Gray ATTENDING PHYSICIAN STATEMENT I saw and evaluated the patient. I reviewed the resident's note and discussed the case with the resident. I agree with the resident's findings and plan as documented. SUBJECTIVE:intermittent lower abdomen pressure. states when she has pain that she notified RN and correlated with passing of large blood clot into the mancilla. deneis Cp, SOB< fever, chills, N/V/C/D OBJECTIVE: Last Vital Signs Temp Pulse Resp BP Pulse Ox 97.7 F 66 18 130/64 96 10/03/17 10:00 10/03/17 10:00 10/03/17 06:00 10/03/17 10:00 10/02/17 21:00 General NAD Abdomen soft NT/ND ASSESSMENT AND PLAN: 67 yo F with PMhx of left renal cyst, left adrenal nodule admitted with hematuria/abdominal and flank pain, found with renal vein thrombosis and left renal haemorrhage. 1. L kidney mass with L renal vein thrombosis- hematuria has cleared at this point with intermittent clots. Urology spoke with RN who states that pt needs urgery nephrectomy and that there is no vascular surgeon available at this facility to aid in surgery. therefore requesting transfer to [facility]. cont CBI, pain management. cont heparin ggt. 2. Acute blood loss anemia- s/p 2 units PRBC this admission. Hgb stable. cont to monitor while here. 3. L adrenal nodule- 3cm. increased in size from 2012 4. UTI- on ceftriaxone day 4. Cx negative 5. DVT ppx- hep ggt 6. [facility].
--- NOTE | 2017-10-03 17:10 | PN ---
Progress Note (short form) - Note Progress Note: above events noted MRI with infiltrative mass left kidney and thrombus of left renal vein continues on CBI for hematuria on Heparin HCT responds after transfusion but slowly trending down again pt will need left nephrectomy in light of persistant bleeding will be transferred to [facility] as per pt wishes and need for vascular surgery for the thrombosis will obtain Head CT and Doppler LE
--- NOTE | 2017-10-03 19:31 | PN ---
Physical Exam: SUBJECTIVE: Patient seen and examined. Pt reports intermittent pain with continuous bladder irrigation, which she attributes to when she passes a blood clot into the mancilla. Pt denies chest pain, sob, fever, chills, nausea, vomiting , constipation, diarrhea. No events overnight. OBJECTIVE: Vital Signs Period Temp Pulse Resp BP Sys/Reina Pulse Ox Last 24 Hr 97.7 F-98.0 F 65-75 18-20 123-130/64-64 96 GENERAL: The patient is awake, alert, and fully oriented, in no acute distress. LUNGS: Breath sounds equal, clear to auscultation bilaterally, no wheezes, no crackles, no accessory muscle use. HEART: Regular rate and rhythm, +S1/S2. ABDOMEN: Soft, nondistended, nontender, normoactive bowel sounds, no guarding. EXTREMITIES: Warm, well-perfused, trace lisa LE edema. : Urine in mancilla is clearing up, with blood clots visible. Bladder irrigation ongoing. PSYCH: Normal mood, normal affect. SKIN: Warm, dry, normal turgor, no rashes or lesions noted Laboratory Results - last 24 hr 10/03/17 10/03/17 06:25 06:25 WBC 5.9 RBC 3.50 L Hgb 10.7 Hct 32.5 MCV 92.8 MCH 30.6 MCHC 32.9 RDW 13.9 Plt Count 142 MPV 10.6 PTT (Actin FS) 40.4 H Active Medications Generic Name Dose Route Start Last Admin Trade Name Freq PRN Reason Stop Dose Admin Heparin Sodium (Porcine) 1,000 unit 10/01/17 16:12 10/03/17 10:01 Heparin - IVPUSH 1,000 unit PRN PRN Administration Heparin Heparin Sodium (Porcine) 5,000 unit 10/01/17 16:12 Heparin - IVPUSH PRN PRN Heparin CEFTRIAXONE 1 G/50 ML PREMIX 50 mls @ 100 mls/hr 09/30/17 10:00 10/03/17 09: 58 Ceftriaxone 1 Gm-D5w Bag IVPB 100 mls/hr DAILY ELADIO Administration Sodium Chloride 1,000 mls @ 75 mls/hr 09/29/17 11:45 10/03/17 02:28 Normal Saline - IV 75 mls/hr ASDIR ELADIO Administration Heparin Sodium (Porcine) 25, 500 mls @ 20 mls/hr 10/01/17 16:15 10/03/17 10: 05 000 unit/ Sodium Chloride IV 1,200 unit/hr TITR ELADIO 24 mls/hr Protocol Administration 1,000 UNIT/HR Metoprolol Succinate 50 mg 09/29/17 22:00 10/02/17 21:23 Toprol Xl - PO 50 mg HS ELADIO Administration IMAGIN10/03/[address]-> no discrete intracranial pathology 10/03/17 Duplex LE -> no DVTs to lisa LE. Complex Hook's cyst to Right popliteal fossa noted, measurin 4.1 x 1.26 cm. ASSESSMENT/PLAN: 67yo F with PMH of Left renal cyst, lisa adrenal nodules, frequent UTIs and htn, presented with hematuria with clots, found to have renal vein thrombosis and Left renal hemorrhage. # Left kidney mass with Left renal vein thrombosis - continue bladder irrigation - urine clearing though blood clots are still present - heparin drip - monitor cbc - Urology (Dr. Melchor) recs appreciated: pt will need nephrectomy in light of persistent bleeding. Pt to be transferred to [facility] as per pt wishes and need for vascular surgery for the thrombosis. - Vascular Surgery (Dr. Cheng) recs appreciated - pain control with Morphine 1mg IVpush q8hr prn # UTI - continue IV Ceftriaxone (Day 5) # ROOSEVELT - Cr stable - IVFs - monitor UOP # htn - continue home medication of Metoprolol 50mg - hold ARB # FEN - Fluids: NS @ 75 ml/hr - Electrolytes: wnl, continue to monitor - Nutrition: low sodium diet # Prophylaxis - DVT ppx with Heparin drip Visit type - Emergency Visit Emergency Visit: Yes ED Registration Date: 09/29/17 Care time: The patient presented to the Emergency Department on the above date and was hospitalized for further evaluation of their emergent condition. - New Patient This patient is new to me today: No - Critical Care Critical Care patient: No
[2017-10-03] MEDS: METOPROLOL SUCCINATE 50 MG TAB.SR.24H (FP) PO SCH (21:18)
[2017-10-04] MEDS: HEPARIN - 25,000 UNIT in SODIUM CHLORIDE 495 ML IV SCH ×2 (01:47→04:28)
[2017-10-04] MEDS: HEPARIN NA (PORCINE) 5,000 UNITS/ML 1ML VIAL IVPUSH PRN (04:28)
[2017-10-04 05:23] VITALS: TEMP 97.8
[2017-10-04 08:30] VITALS: BP 136/60; PULSE 68
[2017-10-04] MEDS: CEFTRIAXONE 1 G/50 ML PREMIX 50 ML IVPB SCH (09:26)
[2017-10-04 09:45] LABS: ANION GAP 7 (8-16); CALCIUM 8.2 mg/dL (8.5-10.1); CO2 23 mmol/L (21-32); CREATININE 1.2 mg/dL (0.55-1.02); GLUCOSE,RANDOM 93 mg/dL (74-106)
[2017-10-04] MEDS ORDERED: ALPRAZolam 0.25 MG TABLET PO ONE (11:52)
--- NOTE | 2017-10-04 14:41 | PN ---
Teaching Attending Note Name of Resident: Gaye Gray ATTENDING PHYSICIAN STATEMENT I saw and evaluated the patient. I reviewed the resident's note and discussed the case with the resident. I agree with the resident's findings and plan as documented. SUBJECTIVE:intermittent abdominal pain assoc with hematuria episdoes. pain controlled. denies Cp, SOB, fever, chills OBJECTIVE: Last Vital Signs Temp Pulse Resp BP Pulse Ox 97.8 F 68 20 136/60 95 10/04/17 08:29 10/04/17 08:29 10/04/17 08:46 10/04/17 08:29 10/04/17 08:46 General NAD Abdomen soft NT/ND ASSESSMENT AND PLAN: 67 yo F with PMhx of left renal cyst, left adrenal nodule admitted with hematuria/abdominal and flank pain, found with renal vein thrombosis and left renal haemorrhage. 1. L kidney mass with L renal vein thrombosis- hematuria has cleared at this point with intermittent clots. plan to transfer [facility] for nephrectomy with guidance from vascular surgeon whom is unavailable here. . cont CBI, pain management. cont heparin ggt. 2. Acute blood loss anemia- s/p 2 units PRBC this admission. Hgb stable. cont to monitor while here. 3. L adrenal nodule- 3cm. increased in size from 2012 4. UTI- on ceftriaxone day 5. Cx negative 5. DVT ppx- hep ggt 6. accepted at [facility] awaiting transfer
--- NOTE | 2017-10-04 18:38 | DS ---
Physical Exam: SUBJECTIVE: Patient seen and examined. Pt continues to c/o intermittent abdominal pain associated with continued hematuria. Pt denies chest pain, sob, fever, chills. OBJECTIVE: Vital Signs Period Temp Pulse Resp BP Sys/Reina Pulse Ox Last 24 Hr 97.8 F-97.8 F 68-71 20-20 136-151/60-76 95-95 PHYSICAL EXAM GENERAL: The patient is awake, alert, and fully oriented, in no acute distress. LUNGS: Breath sounds equal, clear to auscultation bilaterally, no wheezes, no crackles, no accessory muscle use. HEART: Regular rate and rhythm, +S1/S2. ABDOMEN: Soft, nondistended, nontender. EXTREMITIES: Warm, well-perfused, trace lisa LE edema. : Hematuria persists with no blood clots today. Bladder irrigation ongoing. PSYCH: Normal mood, normal affect. SKIN: Warm, dry, normal turgor, no rashes or lesions noted LABS Laboratory Results - last 24 hr 09/29/17 10/03/17 10/04/17 06:30 19:00 03:00 PTT (Actin FS) 48.0 H 47.0 H Sodium Potassium Chloride Carbon Dioxide Anion Gap BUN Creatinine Random Glucose Calcium Blood Type A NEGATIVE Antibody Screen Negative Crossmatch See Detail 10/04/17 10/04/17 07:45 07:45 PTT (Actin FS) 69.2 H D Sodium 145 Potassium 3.8 Chloride 115 H Carbon Dioxide 23 Anion Gap 7 L BUN 16 Creatinine 1.2 H Random Glucose 93 Calcium 8.2 L Blood Type Antibody Screen Crossmatch HOSPITAL COURSE: Date of Admission:09/29/17 Date of Discharge: 10/04/17 67yo F with PMH of Left renal cyst, lisa adrenal nodules, frequent UTIs and htn, presented with hematuria with clots, found to have renal vein thrombosis and Left renal hemorrhage. Pt received continuous bladder irrigation during hospitalization. Heparin drip maintained for anticoagulation. Pt received IV Ceftriaxone for UTI. 09/28/17 urine culture (-) 09/28/17 Ab/Pel CT -> (1) Left renal venous thrombosis, may be 2/2 tumor thrombus. Rec renal vein duplex. Marked enlargement of the Left kidney suggestive of hemorrhage, ?underlying neoplasm. Rec contrast MRI or CT kidney for f/u. (2) No hydronephrosis. Large Left renal cyst. (3) 3.4 x 2.6 cm heterogeneous Left adrenal mass, similar in size to 06/2013 CT, malignancy cannot be ruled out. Rec nonemergent surgery consult. (4) 1.9 x 1.5 cm Right adrenal gland adenoma. (5) Hepatic steatosis and borderline hepatomegaly. 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 (7) Small pericardial effusion. - Copy of this report provided to pt. 09/29/17 CXR -> no acute pathology 09/29/17 Renal US/Doppler -> (1) renal vein not well visualized. (2) asymmetric enlargement of Let kidney with asymmetric echogenic cortex likely 2/ 2 Left renal vein thrombosis or renal hemorrhage. (3) 6.2 x 5.2 Left renal cyst. (4) no hydronephrosis. 09/30/17 Ab MRI -> (1) markedly enlarged and heterogeneously enhancing Left kidney 2/2 infiltrative neoplasm extending to the Left renal vein / tumoral Left vein thrombosis extending to the junction with the IVC. (2) Left gonadal vein thrombosis. (3) Left renal cyst like structure likely severely dilated calyx. (4) 3.0cm Left adrenal gland lesion suggestive of adenoma. (5) fatty infiltrative liver. 10/03/[address]-> no discrete intracranial pathology 10/03/17 Duplex LE -> no DVTs to lisa LE. Complex Hook's cyst to Right popliteal fossa noted, measuring 4.1 x 1.26 cm. Pt medically stable for transfer to [facility] for nephrectomy with pt's preferred surgeon. Minutes to complete discharge: 40 Discharge Summary Reason For Visit: THROMBOSIS OF RENAL VEIN Condition: Improved - Instructions Diet, Activity, Other Instructions: You were treated for blood in your urine. You were found to have a mass in your Left kidney and a clot in your Left Renal Vein. You are being transferred to [facility] for a nephrectomy (to have your kidney removed) by the surgeons of your preference. We discontinued your home medications: Benicar, Lasix, and Cefuroxime. Please continue your other home medications as prescribed: your Toprol once daily at bedtime and your Xanax once every 6 hours if needed. We added new medications: a Heparin drip to thin your blood because of the clot in your renal vein, and IV Ceftriaxone antibiotic daily. Please continue to eat a low sodium diet and resume physical activity as tolerated. Follow-ups: - with your Primary Care Doctor (Dr. Damon) within 1 week. - with your Nephrectomy surgeon as directed by the surgeon. Please return to the hospital immediately if you experience persistent or increased abdominal pain, blood in the urine, or for any medical emergency. Referrals: Geoff Damon MD [Primary Care Provider] - Disposition: TRANSFER ACUTE CARE/OTHER HOSP - Home Medications Comprehensive Discharge Medication List: Ambulatory Orders Metoprolol Succinate [Toprol Xl] 50 mg PO HS 01/09/17 Alprazolam [Xanax] 0.25 mg PO Q6H PRN 01/24/17 Ceftriaxone 1 G/50 ml Premix [Ceftriaxone 1 gm-D5w Bag] 1 gm IVPB DAILY bag Heparin - 1,000 unit IVPUSH PRN PRN vial 10/04/17 Heparin - 5,000 unit IVPUSH PRN PRN vial 10/04/17 Heparin - 25,000 unit IV TITR vial 10/04/17 Sodium Chloride [Normal Saline -] 75 ml IV ASDIR infus.bag 10/04/17 This patient is new to me today: No Emergency Visit: Yes ED Registration Date: 09/29/17 Care time: The patient presented to the Emergency Department on the above date and was hospitalized for further evaluation of their emergent condition. Critical Care patient: No - Discharge Referral Referred to [facility] No
== END 2017-10-04 12:00 | disposition short-term general hospital (02) | DRG 699 ==
LOC: JER 18:11 → JERBED 09-29 01:22 → J6S 09-29 02:46
PROVIDERS: ADMIT Internal Medicine; ATTEND Internal Medicine
PROC: 3E1K38Z Irrigation of Genitourinary Tract using Irrigating Substance, Percutaneous Approach (ICD-10-PCS; 2017-09-29)
PROC: 30233N0 Transfusion of Autologous Red Blood Cells into Peripheral Vein, Percutaneous Approach (ICD-10-PCS; principal; 2017-10-01)
DX: I82.3 Embolism and thrombosis of renal vein (principal); N39.0 Urinary tract infection, site not specified; Z68.41 Body mass index [BMI] 40.0-44.9, adult; N17.8 Other acute kidney failure; D62 Acute posthemorrhagic anemia; I31.3 Pericardial effusion (noninflammatory); F41.8 Other specified anxiety disorders; N28.1 Cyst of kidney, acquired; R33.8 Other retention of urine; E66.8 Other obesity; I13.10 Hypertensive heart and chronic kidney disease without heart failure, with stage 1 through stage 4 chronic kidney disease, or unspecified chronic kidney disease; N18.3 Chronic kidney disease, stage 3 (moderate); Z96.652 Presence of left artificial knee joint
CPT/HCPCS: 36415; 36430; 36511; 70470-TC; 71010-TC; 74176-TC; 74183-TC; 76775-TC; 80048; 80053; 81003; 81015; 82565; 83735; 84100; 84520; 85025; 85027; 85610; 85730; 86850; 86900; 86901; 86922; 87086; 93005; 93010; 93970-TC; 93975; 99284-25; A9576; J1644; P9038; P9058